=== PATIENT | male | born 1985 | race Caucasian/White ===

== ENCOUNTER 2017-03-28 16:18 | Observation (INO) | payer MEDICAID, SELFPAY ==
[2017-03-28 16:21] VITALS: BP 150/114; PULSE 84; RESP 16; TEMP 36.8; O2SAT 98; BMI 20.3
[2017-03-28] MEDS: cloNIDine HCl 0.1 MG Tablet PO ×2 (16:58→19:41)
--- NOTE | 2017-03-28 17:01 | ED.DCSUM_ITS ---
- ER Visit Summary Date of Service: 03/28/17 Chief Complaint: Heroin withdrawal History of Present Illness: The patient is a 32 M with no primary care physician. He reports that heroin is his drug of choice and he injects approximately 5 times per day. He states that he has been doing this for a few years. States that his use currently has been the majority of the year this time. Parents report that they had not seen him for a month. They drove down to [place] and found him a grocery store. He reports that his last use was at 230 this morning. He injected heroin and smoked crack. Reports that he has subjective fever and chills. He is abdominal pain and 6 out of 10 severity. He has had nausea and dry heaves. Is a 2-3 episodes of diarrhea today. He has diffuse myalgias and piloerection. He has generalized weakness. Parents gave him a dose of Benadryl and Imodium on the way back up from [place]. Physical Examination: Vitals: Stable. Afebrile. General: Well-nourished and well-developed. Head: Normocephalic atraumatic. Neck: Supple, no lymphadenopathy. No JVD. Nontender. Cardiovascular: Regular rate and rhythm. No murmurs. Respiratory: No respiratory distress. Clear to auscultation bilaterally. Abdominal: Soft, nontender, nondistended, normal bowel sounds. No guarding, rebound, or peritoneal signs. Back: Nontender. Extremities: Nontender, no edema. Skin: Injection sites to the right cephalic vein that do not appear infected. There is no erythema, warmth, or induration. He has a sclerosed left cephalic vein. There is no surrounding erythema, induration, or fluctuance to suggest infection. Neurologic: Alert and oriented ?3. Cranial nerves II through XII are intact. Normal strength and sensation. Psych: Normal affect. Test Results: [] Emergency Department Course and Treatment: Patient had an IV placed. He was given a dose of Phenergan IV, clonidine p.o., and had a nicotine patch placed. His CINA score is 15. CIWA score is 28. Treatment Plan: Patient was discussed with Dr. Cordero and yusuf patel. He will be admitted to the hospital for further evaluation and treatment. Disposition: Admitted in stable condition. Impression: 1. Opiate withdrawal. This note was generated with [employer] dictation software. It may contain incorrect words, spelling, and punctuation that were not noted in review of the chart prior to signing. ED Disposition - Plan for ED Patient: Chief Complaint: Subst Abuse Referrals: NOT,DEFINED [Primary Care Provider] -
[2017-03-28 17:09] VITALS: BP 121/74; PULSE 74; RESP 22; TEMP 36.8; O2SAT 99
--- NOTE | 2017-03-28 17:18 | PCM.HP.STD ---
Problem List (1) Opiate withdrawal Status: Acute (2) Heroin abuse Status: Chronic History of Present Illness Date of Admission: 03/28/17 Chief Complaint: heroin withdrawal The patient is a 32 year old M who was found by his parents because they went looking for him today because it is his birthday. They found him and he came the car voluntarily. Patient has been using heroin for the past 2 years. He is had quit at other times but most the time was involuntary his parents for some 2 or he was imprisoned her on parole. This time he came in voluntarily and did not jump out of the car, which according to his parents, his medication that he is desiring to quit. Patient uses IV heroin up to 5 times per day his last use is around 2:30 AM. He occasionally smokes methamphetamines and cocaine and marijuana. Does not drink alcohol. His CINA score is 15. She is asking for withdrawal treatment from opiates. [] Past Medical History Past Medical History (Chronic Problems): Chronic Problems Heroin abuse (Chronic) Allergies No Known Allergies Allergy (Verified 03/28/17 16:23) Home Medications: Ambulatory Orders Medication Instructions Recorded No Known/Unobtainable [No Known 03/28/17 Home Medications] Smoking Status: Heavy Smoker (>10/day) Tobacco Use: Cigarettes Alcohol: None Drugs: Cocaine, Marijuana, - - Methamphetamines - *Family History Maternal History Items: - Additional Family History: Patient is adopted Review of Systems Constitutional: Denies: Anorexia, Chills, Fever Eyes: Denies: Blurred vision, Double vision HEENT: Denies: Difficulty Hearing, Dysphasia Cardiovascular: Denies: Chest Pain, Palpitations Respiratory: Denies: Cough, Shortness of breath at rest, Sputum production Gastrointestinal: Reports: - - Abdominal cramps. Denies: Diarrhea Genitourinary: Denies: Dysuria Musculoskeletal: Denies: Joint Pain, Joint Tenderness Skin: Denies: Rash, Wounds Neurological: Denies: Numbness, Tingling, Focal weakness Psychiatric: Denies: Anxiety, Depression, Homicidal Ideations, Suicidal Ideations Hematologic/ Lymphatic: Denies: Easy Bruising, Easy Bleeding VTE Information - Inpt Only VTE Present on Admission: No VTE Mechan Device Prophylaxis: None VTE Pharm Prophylaxis ordered?: No Patient Problems: Active and Suspected Problems Opiate withdrawal (Acute) - Physical Exam General: Alert, Cooperative, No apparent distress HEENT: Atraumatic, Normocephalic Oral: Moist Mucosa, No Gingival or Mucosal Lesions/ Ulcerations Neck: No Nodes, Thyroid Normal Size and Texture Lungs: Clear to auscultation, Normal air movement, No rhonchi, No wheeze Cardiovascular: Regular rate, Regular Rhythm, Normal S1, Normal S2, No murmurs Abdomen: Bowel Sounds Present, Soft, Non Tender, Non-Distended, No Hepato-splenomegaly Extremities: No edema, No Calf Tenderness Skin: No rashes, - - Numerous tattoos on his arms and neck Musculoskeletal: No Tenderness to Palpation of Joints or Extremities, No Muscle Wasting Psych/Mental Status: Normal Affect, Appropriate Vital Signs Temp Pulse Resp BP Pulse Ox 36.8 C 84 16 150/114 98 03/28/17 16:21 03/28/17 16:21 03/28/17 16:21 03/28/17 16:21 03/28/17 16:21 Oxygen Delivery Method Room Air Weight: 60.781 kg Body Mass Index (BMI) 20.3 Assessment/Plan Active and Suspected Problems Opiate withdrawal (Acute) 1. Acute opiate withdrawal Patient voluntarily presents to the emergency room for treatment. Patient is coming from the [facility]. Patient last use is 2:30 AM. Patient has had a history of overdoses that have required Narcan. Patient will be enrolled in medical stabilization program with Subutex. Additionally, patient will be on other agents to help him with his other somatic complaints. Patient and his family were made aware that this is strictly a voluntary process and that it would be a total of 3 days here in the hospital then afterwards [facility] program will facilitate outpatient management. That will be determined why he is here in the hospital. Patient is told that we are here to help him but we certainly would not keep him here against his will.
--- NOTE | 2017-03-28 17:24 | HP.PCM_ITS ---
Problem List (1) Opiate withdrawal Status: Acute (2) Heroin abuse Status: Chronic History of Present Illness Date of Admission: 03/28/17 Chief Complaint: heroin withdrawal The patient is a 32 year old M who was found by his parents because they went looking for him today because it is his birthday. They found him and he came the car voluntarily. Patient has been using heroin for the past 2 years. He is had quit at other times but most the time was involuntary his parents for some 2 or he was imprisoned her on parole. This time he came in voluntarily and did not jump out of the car, which according to his parents, his medication that he is desiring to quit. Patient uses IV heroin up to 5 times per day his last use is around 2:30 AM. He occasionally smokes methamphetamines and cocaine and marijuana. Does not drink alcohol. His CINA score is 15. She is asking for withdrawal treatment from opiates. [] Past Medical History Past Medical History (Chronic Problems): Chronic Problems Heroin abuse (Chronic) Allergies No Known Allergies Allergy (Verified 03/28/17 16:23) Home Medications: Ambulatory Orders Medication Instructions Recorded No Known/Unobtainable [No Known 03/28/17 Home Medications] Smoking Status: Heavy Smoker (>10/day) Tobacco Use: Cigarettes Alcohol: None Drugs: Cocaine, Marijuana, - - Methamphetamines - *Family History Maternal History Items: - Additional Family History: Patient is adopted Review of Systems Constitutional: Denies: Anorexia, Chills, Fever Eyes: Denies: Blurred vision, Double vision HEENT: Denies: Difficulty Hearing, Dysphasia Cardiovascular: Denies: Chest Pain, Palpitations Respiratory: Denies: Cough, Shortness of breath at rest, Sputum production Gastrointestinal: Reports: - - Abdominal cramps. Denies: Diarrhea Genitourinary: Denies: Dysuria Musculoskeletal: Denies: Joint Pain, Joint Tenderness Skin: Denies: Rash, Wounds Neurological: Denies: Numbness, Tingling, Focal weakness Psychiatric: Denies: Anxiety, Depression, Homicidal Ideations, Suicidal Ideations Hematologic/ Lymphatic: Denies: Easy Bruising, Easy Bleeding VTE Information - Inpt Only VTE Present on Admission: No VTE Mechan Device Prophylaxis: None VTE Pharm Prophylaxis ordered?: No Patient Problems: Active and Suspected Problems Opiate withdrawal (Acute) - Physical Exam General: Alert, Cooperative, No apparent distress HEENT: Atraumatic, Normocephalic Oral: Moist Mucosa, No Gingival or Mucosal Lesions/ Ulcerations Neck: No Nodes, Thyroid Normal Size and Texture Lungs: Clear to auscultation, Normal air movement, No rhonchi, No wheeze Cardiovascular: Regular rate, Regular Rhythm, Normal S1, Normal S2, No murmurs Abdomen: Bowel Sounds Present, Soft, Non Tender, Non-Distended, No Hepato- splenomegaly Extremities: No edema, No Calf Tenderness Skin: No rashes, - - Numerous tattoos on his arms and neck Musculoskeletal: No Tenderness to Palpation of Joints or Extremities, No Muscle Wasting Psych/Mental Status: Normal Affect, Appropriate Vital Signs Temp Pulse Resp BP Pulse Ox 36.8 C 84 16 150/114 98 03/28/17 16:21 03/28/17 16:21 03/28/17 16:21 03/28/17 16:21 03/28/17 16:21 Oxygen Delivery Method Room Air Weight: 60.781 kg Body Mass Index (BMI) 20.3 Assessment/Plan Active and Suspected Problems Opiate withdrawal (Acute) 1. Acute opiate withdrawal * Patient voluntarily presents to the emergency room for treatment. Patient is coming from the [facility]. Patient last use is 2:30 AM. Patient has had a history of overdoses that have required Narcan. * Patient will be enrolled in medical stabilization program with Subutex. Additionally, patient will be on other agents to help him with his other somatic complaints. * Patient and his family were made aware that this is strictly a voluntary process and that it would be a total of 3 days here in the hospital then afterwards [facility] program will facilitate outpatient management. That will be determined why he is here in the hospital. Patient is told that we are here to help him but we certainly would not keep him here against his will.
[2017-03-28] MEDS: 0.9% Normal Saline 1,000 ML 1000 ML IV (17:31)
[2017-03-28 17:55] LABS: Amphetamine Urine VISTA NEGATIVE (<1000 ng/mL); Barbiturate Urine VISTA NEGATIVE (< 200 ng/mL); Benzodiazepine Urine VISTA NEGATIVE (< 200 ng/mL); Cocaine Urine VISTA POSITIVE (< 300 ng/mL); Ecstacy Urine VISTA NEGATIVE (< 500 ng/mL); Methadone Urine VISTA NEGATIVE (< 300 ng/mL); PCP Urine VISTA NEGATIVE (< 25 ng/mL); THC Urine VISTA NEGATIVE (< 50 ng/mL); Vista UDS pH Range 6
[2017-03-28 17:57] LABS: Absolute Lymphocyte Count 2.38 X10^3/ul (0.83-4.51); Absolute Neutrophil Count 3.9 X10^3/uL (2.0-7.7); Basophil# 0.07 X10^3/uL; Eosinophil# 0.11 X10^3/uL; Eosinophils% 1.6 % (0-5); Hematocrit 43.1 % (40-54); Hemoglobin 14.1 g/dl (13.0-16.5); Lymphocyte # 2.38 X10^3/ul (4.0); Lymphocyte % 33.8 % (19-41); Mean Corp Hgb Conc 32.7 g/gl (32-36); Mean Corpuscular Hgb 28.3 pg (27.0-32.0); Mean Corpuscular Volume 86.5 fL (80-94); Mean Platelet Vol. 9.1 fl (6.2-12.0); Monocyte# 0.56 X10^3/uL; Neutrophil # 3.87 X10^3/uL (2.7-7.7); Neutrophil % 54.9 % (47-70); Platelet Count 396 K/mm3 (150-450); RBC Distribution Width CV 15.1 % (11.6-14.6); RBC Distribution Width SD 48.1 fl (35.1-43.9); Red Blood Count 4.98 M/mm3 (4.6-6.2)
[2017-03-28 17:58] LABS: POSITIVE COUNT NO; POSITIVE DIFFERENTIAL NO; POSITIVE MORPHOLOGY NO
[2017-03-28 18:16] LABS: AST(SGOT) 416 U/L (15-37); Alanine Aminotransfer ALT/SGPT 632 U/L (12-78); Alkaline Phosphatase 158 U/L (45-117); Anion Gap 8 (5-15); BUN 8 mg/dL (7-18); BUN/Creat Ratio 10.5 RATIO (10-20); Bilirubin, Direct 0.19 mg/dL (0.00-0.30); Calcium,Total 8.1 mg/dL (8.5-10.1); Chloride 108 mmol/L (98-107); Creatinine, Serum 0.76 mg/dL (0.70-1.30); EST Glomerular Filtration Rate 127 mL/min (>60); Est Glom Filt Rate - Afr Amer 154 mL/min (>60); Estimated Creatinine Clearance 122.18 ml/min; Globulin 4.1 g/dL (2.2-4.2); Glucose 121 mg/dL (70-110); Potassium 3.8 mmol/L (3.5-5.1); Protein, Total 7.1 g/dL (6.4-8.2); Sodium Level 140 mmol/L (136-145)
[2017-03-28 18:41] VITALS: BMI 20.3; BMI 20.4
[2017-03-28 19:00] VITALS: BP 130/81; PULSE 69; RESP 18; TEMP 36.7
[2017-03-28] MEDS: Ibuprofen 400 MG Tablet 800 MG PO (19:40)
[2017-03-28] MEDS: Buprenorphine HCl 2 MG TAB.SUBL SL (19:41)
[2017-03-28 19:46] VITALS: BP 130/81; PULSE 69; RESP 24; TEMP 36.7
[2017-03-28] MEDS: traZODone 50 MG Tablet PO (22:55)
[2017-03-28 22:58] VITALS: BP 94/40; PULSE 53; RESP 18; TEMP 37
[2017-03-29 03:24] VITALS: BP 94/48; PULSE 61; RESP 16; TEMP 35.8
[2017-03-29] MEDS: Buprenorphine HCl 2 MG TAB.SUBL SL ×3 (03:28→18:56)
[2017-03-29 07:02] VITALS: BP 97/46; PULSE 67; RESP 16; TEMP 36.6
--- NOTE | 2017-03-29 07:35 | PCM.PN.HOSP ---
Patient Problems: Active and Suspected Problems Opiate withdrawal (Acute) Subjective: Patient is a 32-year-old gentleman with history of polysubstance abuse including IV heroin and crack cocaine admitted with acute opioid withdrawal Objective: GENERAL: cooperative HEENT: Clear conjunctiva, NECK; supple, normal thyroid, CHEST: Clear to auscultation bilaterally, HEART: Regular S1 S2, no audible murmurs ABDOMEN: soft, non-tender, n RECTAL: deferred EXTREMITIES: No edema, no clubbing, no cyanosis. OIL EXPERT: Awake, no lateralizing signs. SKIN: tattoos on upper extremities Vitals/I&O's: Vital Signs Temp Pulse Resp BP Pulse Ox 98 F 67 16 97/46 99 03/29/17 07:02 03/29/17 07:02 03/29/17 07:02 03/29/17 07:02 03/28/17 17:09 Weight: 60.781 kg Body Mass Index (BMI) 20.3 Intake and Output for Last 24 Hours 03/28/17 03/28/17 03/29/17 00:59 23:59 23:59 Intake Total 1100 Balance 1100 Laboratory Results 03/28/17 17:25: Urine Opiates Screen NEGATIVE, Urine Methadone Screen NEGATIVE, Ur Barbiturates Screen NEGATIVE, Ur Phencyclidine Scrn NEGATIVE, Ur Amphetamines Screen NEGATIVE, U Methamphetamin-MDMA NEGATIVE, U Benzodiazepines Scrn NEGATIVE, Urine Cocaine Screen POSITIVE H, U Cannabinoids Screen NEGATIVE, Ur Drug Screen Comment 03/28/17 17:41: WBC 7.0, RBC 4.98, Hgb 14.1, Hct 43.1, MCV 86.5, MCH 28.3, MCHC 32.7, RDW 15.1 H, RDW Differential 48.1 H, Plt Count 396, MPV 9.1, Immature Gran % (Auto) 0.700, Neut % (Auto) 54.9, Lymph % (Auto) 33.8, [place] % (Auto) 8.0, Eos % (Auto) 1.6, Baso % (Auto) 1.0, Absolute Neuts (auto) 3.9, Absolute Lymphs (auto) 2.38, Total Counted Not Reportable 03/28/17 17:41: Sodium 140, Potassium 3.8, Chloride 108 H, Carbon Dioxide 24.0, Anion Gap 8, BUN 8, Creatinine 0.76, Estim Creat Clear Calc 122.18, Est GFR (MDRD) Af Amer 154, Est GFR (MDRD) Non-Af 127, BUN/Creatinine Ratio 10.5, Glucose 121 H, Calcium 8.1 L, Total Bilirubin 0.50, Direct Bilirubin 0.19, AST 416 H, ALT 632 H, Alkaline Phosphatase 158 H, Total Protein 7.1, Albumin 3.0 L, Globulin 4.1 03/28/17 17:41: Ethyl Alcohol 4.0 03/28/17 17:41: HIV 1&2 Ag/Ab, 4th Gen Pending Current Medications Acetaminophen (Tylenol) 650 mg PO Q4H PRN PRN PRN Reason: Temp>99.1F Buprenorphine HCl (Buprenorphine Hcl) 4 mg SL Q8H ERASMO PRN Reason: Taper Stop: 03/31/17 23:44 Last Admin: 03/29/17 03:28 Dose: 4 mg Carbidopa/Levodopa (Sinemet) 1 tablet PO Q8H PRN PRN PRN Reason: RESTLESSNESS Clonidine (Catapres) 0.1 mg PO Q2H PRN PRN Reason: Hot/Cold Sweats or Anxiety Last Admin: 03/28/17 19:41 Dose: 0.1 mg Dicyclomine HCl (Bentyl) 20 mg PO Q6H PRN PRN PRN Reason: Abdomnial Discomfort Hydroxyzine Pamoate (Vistaril) 50 mg PO Q6H PRN PRN PRN Reason: Mild Anxiety (score 1/3) Last Admin: 03/28/17 19:41 Dose: 50 mg Ibuprofen (Motrin) 800 mg PO Q8H PRN PRN PRN Reason: Mild-Moderate Pain (1-5/10) Last Admin: 03/28/17 19:40 Dose: 800 mg Loperamide HCl (Imodium) 2 - 4 mg PO UD PRN PRN Reason: LOOSE STOOLS Nicotine (Nicoderm Cq (Pbkc)) 21 mg TRANSDERM. DAILY ERASMO Trazodone HCl (Desyrel) 50 mg PO QHS [facility] Last Admin: 03/28/17 22:55 Dose: 50 mg Assessment/Plan Active and Suspected Problems Opiate withdrawal (Acute) Patient is a 32-year-old gentleman with history of polysubstance abuse including IV heroin and crack cocaine admitted with acute opioid withdrawal 1. Acute opioid withdrawal admitted to regular nursing floor to be managed with Subutex for his medical stabilization patient was counseled on cessation 2. Tobacco dependence counseled on cessation, offered nicotine patch for tobacco cravings 3. DVT prophylaxis low risk did encourage early ambulation
[2017-03-29 10:59] VITALS: BP 111/58; PULSE 64; RESP 16; TEMP 36.5
[2017-03-29] MEDS: cloNIDine HCl 0.1 MG Tablet PO (11:08)
[2017-03-29 15:00] VITALS: BP 100/42; PULSE 62; RESP 16; TEMP 36.5
--- NOTE | 2017-03-29 15:20 | CHAPLAIN ---
Type of Pastoral Visit _x__ Initial Visit ___ Follow-up Visit ___ On-call Visit ___ General Patient Visit ___ Spiritual Assessment ___ Family Conference ___ Bereavement ___ Rapid Response ___ Code Blue ___ Other (describe below) Pastoral Care Referral From _x__ Patient _x__ Family ___ Nurse ___ Physician ___ Automobile Travel Club Counselor ___ Auto Body Repair Technician ___ Other (describe below) Sacrament/Intervention _x__ Active listening ___ Anointing ___ Sabianism ___ Bereavement ___ Communion ___ Concha exploration ___ ___ Life review ___ Prayer ___ Reconciliation ___ Sacrament of Sick ___ Supportive presence ___ Wedding ___ Other (describe below) Pastoral Comments patient said that he wished to speak to the physician credentialing specialist; pt said that God must have been looking out for him because of circumstances that brought him to hospital and how he was found; pt said that previously he was forced to go to rehab; now he says he wants help and is open to spiritual support and prayers; pt said that he would like physician credentialing specialist to return tomorrow and talk with him but now he is very tired from his meds
[2017-03-29 18:48] VITALS: BP 122/68; PULSE 68; RESP 16; TEMP 36.4
[2017-03-29] MEDS: Ibuprofen 400 MG Tablet 800 MG PO (19:02)
[2017-03-29] MEDS: traZODone 50 MG Tablet PO (21:05)
[2017-03-29] MEDS: Carbidopa/Levodopa 25/100 Tablet PO (21:06)
[2017-03-29 22:00] VITALS: BP 109/49; PULSE 56; RESP 16; TEMP 36.8
[2017-03-30] MEDS: Buprenorphine HCl 2 MG TAB.SUBL SL ×3 (04:11→23:12)
[2017-03-30 04:53] VITALS: BP 105/64; PULSE 67; RESP 16; TEMP 36.4
[2017-03-30 05:07] LABS: HEPATITIS B SURFACE AG Negative (Negative); Hepatitis A IgM Antibody Negative (Negative); Hepatitis B Core AB IgM Negative (Negative)
[2017-03-30 05:38] LABS: HIV 1/0/2 SCREEN 4TH GEN Non Reactive (Non Reactive)
--- NOTE | 2017-03-30 07:14 | PN_ITS ---
Patient Problems: Active and Suspected Problems Opiate withdrawal (Acute) Subjective: Patient seen complains of leg cramps. Patient requested for hep C screen the day prior ; order sent. Objective: GENERAL: cooperative HEENT: Clear conjunctiva, NECK; supple, normal thyroid, CHEST: Clear to auscultation bilaterally, HEART: Regular S1 S2, no audible murmurs ABDOMEN: soft, non-tender, n RECTAL: deferred EXTREMITIES: No edema, no clubbing, no cyanosis. ROENTGENOLOGY TEACHER: Awake, no lateralizing signs. SKIN: tattoos on upper extremities Vitals/I&O's: Vital Signs Temp Pulse Resp BP Pulse Ox 97.6 F 67 16 105/64 99 03/30/17 04:53 03/30/17 04:53 03/30/17 04:53 03/30/17 04:53 03/28/17 17:09 Weight: 60.781 kg Body Mass Index (BMI) 20.3 Intake and Output for Last 24 Hours 03/28/17 03/29/17 03/30/17 23:59 23:59 23:59 Intake Total 1100 800 Balance 1100 800 Laboratory Results 03/28/17 17:41: HIV 1&2 Ag/Ab, 4th Gen Non Reactive 03/28/17 17:41: Hepatitis A IgM Ab Negative, Hep Bs Antigen Negative, Hep B Core IgM Ab Negative, Hepatitis C Ab (EIA) >11.0 H, Hepatitis C Comment Pending Current Medications Acetaminophen (Tylenol) 650 mg PO Q4H PRN PRN PRN Reason: Temp>99.1F Buprenorphine HCl (Buprenorphine Hcl) 2 mg SL Q8H ERASMO PRN Reason: Taper Stop: 03/31/17 23:44 Last Admin: 03/30/17 04:11 Dose: 2 mg Carbidopa/Levodopa (Sinemet) 1 tablet PO Q8H PRN PRN PRN Reason: RESTLESSNESS Last Admin: 03/29/17 21:06 Dose: 1 tablet Clonidine (Catapres) 0.1 mg PO Q2H PRN PRN Reason: Hot/Cold Sweats or Anxiety Last Admin: 03/29/17 11:08 Dose: 0.1 mg Dicyclomine HCl (Bentyl) 20 mg PO Q6H PRN PRN PRN Reason: Abdomnial Discomfort Hydroxyzine Pamoate (Vistaril) 50 mg PO Q6H PRN PRN PRN Reason: Mild Anxiety (score 1/3) Last Admin: 03/29/17 21:05 Dose: 50 mg Ibuprofen (Motrin) 800 mg PO Q8H PRN PRN PRN Reason: Mild-Moderate Pain (1-5/10) Last Admin: 03/29/17 19:02 Dose: 800 mg Loperamide HCl (Imodium) 2 - 4 mg PO UD PRN PRN Reason: LOOSE STOOLS Nicotine (Nicoderm Cq (Pbkc)) 21 mg TRANSDERM. DAILY [facility] Last Admin: 03/29/17 10:54 Dose: 21 mg Nutritional Formula (Lactose Free) (Ensure Enlive) 120 ml PO 4X/DAY [facility] Last Admin: 03/29/17 21:06 Dose: 120 ml Trazodone HCl (Desyrel) 50 mg PO QHS [facility] Last Admin: 03/29/17 21:05 Dose: 50 mg Assessment/Plan Active and Suspected Problems Opiate withdrawal (Acute) Patient is a 32-year-old gentleman with history of polysubstance abuse including IV heroin and crack cocaine admitted with acute opioid withdrawal 1. Acute opioid withdrawal admitted to regular nursing floor to be managed with Subutex for his medical stabilization patient was counseled on cessation 2. Tobacco dependence counseled on cessation, offered nicotine patch for tobacco cravings 3. DVT prophylaxis low risk did encourage early ambulation
[2017-03-30 11:17] VITALS: BP 120/72; PULSE 65; RESP 16; TEMP 36.6
[2017-03-30] MEDS: Ibuprofen 400 MG Tablet 800 MG PO ×2 (11:33→18:59)
[2017-03-30] MEDS: cloNIDine HCl 0.1 MG Tablet PO ×2 (11:33→17:02)
[2017-03-30] MEDS: Carbidopa/Levodopa 25/100 Tablet PO (11:34)
--- NOTE | 2017-03-30 15:19 | CHAPLAIN ---
Type of Pastoral Visit ___ Initial Visit _x__ Follow-up Visit ___ On-call Visit ___ General Patient Visit ___ Spiritual Assessment ___ Family Conference ___ Bereavement ___ Rapid Response ___ Code Blue ___ Other (describe below) Pastoral Care Referral From _x__ Patient ___ Family ___ Nurse ___ Physician ___ Answerer ___ Cold Patcher ___ Other (describe below) Sacrament/Intervention _x__ Active listening ___ Anointing ___ Mosque ___ Bereavement ___ Communion _x__ Concha exploration ___ ___ Life review _x__ Prayer ___ Reconciliation ___ Sacrament of Sick ___ Supportive presence ___ Wedding ___ Other (describe below) Pastoral Comments return visit as requested by patient; pt said he is going to a [place] based rehab that he chose and wants spiritual help; pt told me that he was looking at the Bible and remembering; pt says that he is seeing how God has given him help this time; pt made comments about fearing God if pt makes promises to God that he will not keep; showed he the story of Prodigal Son from the Bible and how that relates; pt welcomed a prayer and handouts of inspirational materials;
[2017-03-30 16:57] VITALS: BP 118/79; PULSE 57; RESP 16; TEMP 36.4
[2017-03-30 22:00] VITALS: BP 128/79; PULSE 63; RESP 16; TEMP 36.5
[2017-03-30] MEDS: traZODone 50 MG Tablet PO (23:12)
[2017-03-31 02:00] VITALS: RESP 16
[2017-03-31 06:00] VITALS: RESP 16
--- NOTE | 2017-03-31 07:40 | PN_ITS ---
Patient Problems: Active and Suspected Problems Opiate withdrawal (Acute) Subjective: Seen admit to feeling better. Plan is for patient to be discharged to an inpatient rehab facility on 04/01/2017. Objective: GENERAL: cooperative HEENT: Clear conjunctiva, NECK; supple, normal thyroid, CHEST: Clear to auscultation bilaterally, HEART: Regular S1 S2, no audible murmurs ABDOMEN: soft, non-tender, n RECTAL: deferred EXTREMITIES: No edema, no clubbing, no cyanosis. SEMICONDUCTOR WAFERS SAW OPERATOR: Awake, no lateralizing signs. SKIN: tattoos on upper extremities Vitals/I&O's: Vital Signs Temp Pulse Resp BP Pulse Ox 97.7 F 63 16 128/79 99 03/30/17 22:00 03/30/17 22:00 03/31/17 06:00 03/30/17 22:00 03/28/17 17:09 Weight: 60.781 kg Body Mass Index (BMI) 20.3 Intake and Output for Last 24 Hours 03/29/17 03/30/17 03/31/17 23:59 23:59 23:59 Intake Total 1100 1240 222 Balance 1100 1240 222 Current Medications Acetaminophen (Tylenol) 650 mg PO Q4H PRN PRN PRN Reason: Temp>99.1F Buprenorphine HCl (Buprenorphine Hcl) 2 mg SL Q12H ERASMO PRN Reason: Taper Stop: 03/31/17 23:44 Last Admin: 03/30/17 23:12 Dose: 2 mg Carbidopa/Levodopa (Sinemet) 1 tablet PO Q8H PRN PRN PRN Reason: RESTLESSNESS Last Admin: 03/30/17 11:34 Dose: 1 tablet Clonidine (Catapres) 0.1 mg PO Q2H PRN PRN Reason: Hot/Cold Sweats or Anxiety Last Admin: 03/30/17 17:02 Dose: 0.1 mg Dicyclomine HCl (Bentyl) 20 mg PO Q6H PRN PRN PRN Reason: Abdomnial Discomfort Hydroxyzine Pamoate (Vistaril) 50 mg PO Q6H PRN PRN PRN Reason: Mild Anxiety (score 1/3) Last Admin: 03/30/17 17:02 Dose: 50 mg Ibuprofen (Motrin) 800 mg PO Q8H PRN PRN PRN Reason: Mild-Moderate Pain (1-5/10) Last Admin: 03/30/17 18:59 Dose: 800 mg Loperamide HCl (Imodium) 2 - 4 mg PO UD PRN PRN Reason: LOOSE STOOLS Nicotine (Nicoderm Cq (Pbkc)) 21 mg TRANSDERM. DAILY [facility] Last Admin: 03/30/17 11:33 Dose: 21 mg Nutritional Formula (Lactose Free) (Ensure Enlive) 120 ml PO 4X/DAY [facility] Last Admin: 03/30/17 23:13 Dose: Not Given Trazodone HCl (Desyrel) 50 mg PO QHS [facility] Last Admin: 03/30/17 23:12 Dose: 50 mg Assessment/Plan Active and Suspected Problems Opiate withdrawal (Acute) Patient is a 32-year-old gentleman with history of polysubstance abuse including IV heroin and crack cocaine admitted with acute opioid withdrawal 1. Acute opioid withdrawal admitted to regular nursing floor to be managed with Subutex for his medical stabilization patient was counseled on cessation 2. Tobacco dependence counseled on cessation, offered nicotine patch for tobacco cravings 3. DVT prophylaxis low risk did encourage early ambulation
[2017-03-31 07:56] LABS: Hep C Antibodies >11.0 s/co ratio (0.0-0.9)
[2017-03-31 11:00] VITALS: BP 124/73; PULSE 72; RESP 14; TEMP 36.8
[2017-03-31] MEDS: Buprenorphine HCl 2 MG TAB.SUBL SL (11:39)
--- NOTE | 2017-03-31 16:31 | CHAPLAIN ---
Type of Pastoral Visit ___ Initial Visit _x__ Follow-up Visit ___ On-call Visit ___ General Patient Visit ___ Spiritual Assessment ___ Family Conference ___ Bereavement ___ Rapid Response ___ Code Blue ___ Other (describe below) Pastoral Care Referral From _x__ Patient ___ Family ___ Nurse ___ Physician ___ Coffee Roaster Helper ___ Highway Maintenance Crew Worker ___ Other (describe below) Sacrament/Intervention _x__ Active listening ___ Anointing ___ Buddhism ___ Bereavement ___ Communion _x__ Concha exploration ___ _x__ Life review _x__ Prayer ___ Reconciliation ___ Sacrament of Sick _x__ Supportive presence ___ Wedding ___ Other (describe below) Pastoral Comments patient asked staff for this geropsychologist to visit again today; pt has some apprehension about going to rehab but expresses determination to stick with it; pt has had much support from family; pt is asking for spiritual help, conversation, and prayers
[2017-03-31] MEDS: Ibuprofen 400 MG Tablet 800 MG PO (16:44)
[2017-03-31 16:59] VITALS: BP 122/76; PULSE 71; RESP 14; TEMP 37.1
[2017-03-31 21:04] VITALS: BP 157/131; PULSE 54; RESP 16; TEMP 37.2
[2017-03-31] MEDS: traZODone 50 MG Tablet PO (21:21)
[2017-03-31] MEDS: cloNIDine HCl 0.1 MG Tablet PO (21:21)
[2017-04-01 02:00] VITALS: RESP 16
[2017-04-01 06:00] VITALS: RESP 16
[2017-04-01] MEDS: cloNIDine HCl 0.1 MG Tablet PO (08:07)
[2017-04-01] MEDS: Ibuprofen 400 MG Tablet 800 MG PO (08:07)
[2017-04-01 08:08] VITALS: BP 121/84; PULSE 71; RESP 16; TEMP 36.6; O2SAT 100
--- NOTE | 2017-04-01 08:13 | PCM.DC ---
- Discharge Diagnoses Current Active Problems: Current Active and Chronic Problems Opiate withdrawal (Acute) Heroin abuse (Chronic) You will use the following diet at home:: No restrictions Your food should be the consistency of: Regular Allergies/Adverse Reactions: Allergies No Known Allergies Allergy (Verified 03/28/17 16:23) Medications to take at Discharge No Known/Unobtainable [No Known Home Medications] 03/28/17 Primary Care Physician: NOT,DEFINED [NON-STAFF] - Proposed Discharge Date: 04/01/17
--- NOTE | 2017-04-01 08:14 | PCM.DC.SUM ---
Discharge Date and Diagnosis - Problem List Patient Problems: Active and Suspected Problems Opiate withdrawal (Acute) Date of Admission: 03/28/17 Date of Discharge: 04/01/17 - Primary Discharge Diagnosis Active and Suspected Problems Opiate withdrawal (Acute) - Secondary Discharge Diagnosis Chronic Problems Heroin abuse (Chronic) Hospital Course and Treatment Summary of Care Provided: Patient is a 32-year-old gentleman with history of polysubstance abuse including IV heroin and crack cocaine admitted with acute opioid withdrawal 1. Acute opioid withdrawal admitted to regular nursing floor to be managed with Subutex for his medical stabilization patient was counseled on cessation 2. Tobacco dependence counseled on cessation, offered nicotine patch for tobacco cravings 3. DVT prophylaxis low risk did encourage early ambulation Discharge Diet: No Restrictions Discharge Activity: Return to Normal Activity Home Medications: Medications to take at Discharge No Known/Unobtainable [No Known Home Medications] 03/28/17 Primary Care Physician: NOT,DEFINED [NON-STAFF] - Disposition: Home Minutes spent on discharge:: 35 Patient Condition:: Stable Meaningful Use Info Meaningful Use Diagnoses (Choose all that apply): None applicable
== END 2017-04-01 10:19 | disposition home or self-care (01) | DRG 773 ==
LOC: ED 08-02 07:28 → MS2 08-02 07:28
PROVIDERS: Emergency Provider Emergency Medicine; Visit Provider Internal Medicine
DX: F11.23 Opioid dependence with withdrawal (principal); F17.210 Nicotine dependence, cigarettes, uncomplicated; F14.10 Cocaine abuse, uncomplicated
CPT/HCPCS: 80048; 80074; 80076; 80307; 80320; 85025; 86703; 86803; 97802; 99218; 99285; G0378; G0480

== ENCOUNTER 2018-08-20 15:20 | Inpatient (IN) | payer MEDICAID, SELFPAY ==
[2018-08-20 15:21] VITALS: BP 117/68; PULSE 79; RESP 18; TEMP 36.4; O2SAT 99; BMI 22.3
--- NOTE | 2018-08-20 17:47 | ED.VISSUMM ---
- ER Visit Summary Date of Service: 08/20/18 Chief Complaint: Heroin withdrawal, request for detox History of Present Illness: The patient is a 33 M who presents for heroin withdrawal and requesting detox. Patient last used heroin 12 hours ago. He did use meth in the meantime to try and help with symptoms. He is having insomnia for 2 days, tremors, nausea and vomiting, feeling fidgety, and generally achy. Patient denies any other medical history he did have prior detox 1 year ago. He uses heroin and meth. He smokes tobacco. Denies any recent alcohol use. Physical Examination: Vital signs: afebrile, hemodynamically stable, no hypoxia on room air General: well nourished, well developed, in no distress, fidgeting and moving frequently, anxious Skin: Warm warm, dry, no rash, no pallor HEENT: normocephalic and atraumatic; PERRL, EOMI, moist mucous membranes Cardiovascular: regular rate and rhythm without murmurs, no peripheral edema, 2+ pulses all distal extremities Respiratory: No increased work of breathing, lungs are clear to auscultation bilaterally, no rales, rhonchi or wheezing Abdominal: Abdomen is soft, mildly tender with hyperactive bowel sounds, no guarding or rebound, no masses MSK: Moves all extremities, no deformities, normal strength Neuro: Awake and alert, oriented ?4. No facial droop, sensation and motor function intact and symmetric Test Results: Abnormal Lab Results 08/20/18 08/20/18 08/20/18 17:50 17:50 17:50 WBC 11.6 H RBC 5.03 Hgb 14.9 Hct 42.0 MCV 83.5 MCH 29.6 MCHC 35.5 RDW 13.3 RDW Differential 40.0 Plt Count 353 MPV 9.3 Immature Gran % (Auto) 0.300 Neut % (Auto) 62.6 Lymph % (Auto) 27.4 [place] % (Auto) 7.8 Eos % (Auto) 1.6 Baso % (Auto) 0.3 Absolute Neuts (auto) 7.3 Absolute Lymphs (auto) 3.18 Total Counted Not Reportable Sodium 134 L Potassium 3.5 Chloride 99 Carbon Dioxide 28.0 Anion Gap 7 BUN 12 Creatinine 0.69 L Estim Creat Clear Calc 150.29 Est GFR (MDRD) Af Amer 172 Est GFR (MDRD) Non-Af 143 BUN/Creatinine Ratio 17.5 Glucose 88 Calcium 9.0 Total Bilirubin 0.80 AST 24 ALT 48 Alkaline Phosphatase 106 Total Protein 7.9 Albumin 4.5 Globulin 3.4 Albumin/Globulin Ratio 1.3 Urine Opiates Screen Urine Methadone Screen Ur Barbiturates Screen Ur Phencyclidine Scrn Ur Amphetamines Screen U Methamphetamin-MDMA U Benzodiazepines Scrn Urine Cocaine Screen U Cannabinoids Screen Ur Drug Screen Comment Ethyl Alcohol 6.0 08/20/18 17:50 WBC RBC Hgb Hct MCV MCH MCHC RDW RDW Differential Plt Count MPV Immature Gran % (Auto) Neut % (Auto) Lymph % (Auto) [place] % (Auto) Eos % (Auto) Baso % (Auto) Absolute Neuts (auto) Absolute Lymphs (auto) Total Counted Sodium Potassium Chloride Carbon Dioxide Anion Gap BUN Creatinine Estim Creat Clear Calc Est GFR (MDRD) Af Amer Est GFR (MDRD) Non-Af BUN/Creatinine Ratio Glucose Calcium Total Bilirubin AST ALT Alkaline Phosphatase Total Protein Albumin Globulin Albumin/Globulin Ratio Urine Opiates Screen POSITIVE H Urine Methadone Screen NEGATIVE Ur Barbiturates Screen POSITIVE H Ur Phencyclidine Scrn NEGATIVE Ur Amphetamines Screen POSITIVE H U Methamphetamin-MDMA NEGATIVE U Benzodiazepines Scrn NEGATIVE Urine Cocaine Screen NEGATIVE U Cannabinoids Screen NEGATIVE Ur Drug Screen Comment Ethyl Alcohol Medications Given Lorazepam (Ativan) 1 mg IV X1 ONE Stop: 08/20/18 17:36 Last Admin: 08/20/18 18:06 Dose: 1 mg Emergency Department Course and Treatment: patient's CINA score is 15. Because of significant discomfort and agitation, patient was given IV Ativan and had great improvement in his symptoms. Medical screening exam was performed. Patient was discussed with the hospitalist and admitted for further management of his withdrawal symptoms and evaluation by [facility] for detox. Treatment Plan: [] Disposition: [] Impression: Opiate withdrawal heroin detox This note was generated with [employer] dictation software. It may contain incorrect words, spelling, and punctuation that were not noted in review of the chart prior to signing ED Disposition - Plan for ED Patient: Disposition: Acute Care Hospital [facility]
[2018-08-20 17:48] VITALS: BP 118/72; PULSE 79; RESP 16; O2SAT 98
[2018-08-20] MEDS: LORazepam 2 MG/ML Syringe 1 MG IV (18:06)
[2018-08-20 18:15] LABS: Absolute Lymphocyte Count 3.18 X10^3/ul (0.83-4.51); Absolute Neutrophil Count 7.3 X10^3/uL (2.0-7.7); Basophil# 0.04 X10^3/uL; Basophil% 0.3 % (0-1); Eosinophil# 0.19 X10^3/uL; Eosinophils% 1.6 % (0-5); Hemoglobin 14.9 g/dl (13.0-16.5); Lymphocyte # 3.18 X10^3/ul (4.0); Lymphocyte % 27.4 % (19-41); Mean Corp Hgb Conc 35.5 g/gl (32-36); Mean Corpuscular Hgb 29.6 pg (27.0-32.0); Mean Corpuscular Volume 83.5 fL (80-94); Mean Platelet Vol. 9.3 fl (6.2-12.0); Monocyte# 0.91 X10^3/uL; Monocyte% 7.8 % (0-10); Neutrophil # 7.26 X10^3/uL (2.7-7.7); Neutrophil % 62.6 % (47-70); POSITIVE COUNT NO; POSITIVE DIFFERENTIAL NO; POSITIVE MORPHOLOGY NO; Platelet Count 353 K/mm3 (150-450); RBC Distribution Width CV 13.3 % (11.6-14.6); Red Blood Count 5.03 M/mm3 (4.6-6.2); White Blood Count 11.6 K/mm3 (4.4-11.0)
[2018-08-20 18:28] LABS: Amphetamine Urine VISTA POSITIVE (<1000 ng/mL); Barbiturate Urine VISTA POSITIVE (< 200 ng/mL); Benzodiazepine Urine VISTA NEGATIVE (< 200 ng/mL); Cocaine Urine VISTA NEGATIVE (< 300 ng/mL); Ecstacy Urine VISTA NEGATIVE (< 500 ng/mL); Methadone Urine VISTA NEGATIVE (< 300 ng/mL); PCP Urine VISTA NEGATIVE (< 25 ng/mL); THC Urine VISTA NEGATIVE (< 50 ng/mL); Vista UDS pH Range 6
[2018-08-20 18:31] LABS: Albumin, Serum 4.5 g/dL (3.2-5.0); BUN 12 mg/dL (7-18); BUN/Creat Ratio 17.5 RATIO (10-20); Creatinine, Serum 0.69 mg/dL (0.70-1.30); EST Glomerular Filtration Rate 143 mL/min (>60); Est Glom Filt Rate - Afr Amer 172 mL/min (>60); Estimated Creatinine Clearance 150.29 ml/min; Glucose 88 mg/dL (74-106); Protein, Total 7.9 g/dL (6.4-8.2)
[2018-08-20 18:32] LABS: ALB/GLOB Ratio 1.3 RATIO (0.9-2.4); AST(SGOT) 24 U/L (15-37); Alanine Aminotransfer ALT/SGPT 48 U/L (16-61); Alkaline Phosphatase 106 U/L (45-117); Anion Gap 7 (5-15); Chloride 99 mmol/L (98-107); Globulin 3.4 g/dL (2.2-4.2); Potassium 3.5 mmol/L (3.5-5.1); Sodium Level 134 mmol/L (136-145)
[2018-08-20 19:13] VITALS: BP 111/78; PULSE 89; RESP 14; O2SAT 97
[2018-08-20 20:32] VITALS: BMI 21.9
[2018-08-20 20:36] VITALS: BP 101/66; PULSE 66; RESP 18; TEMP 36.6
[2018-08-20 20:42] VITALS: BMI 22.0
[2018-08-20] MEDS: Methocarbamol 750 MG Tablet PO (20:58)
[2018-08-20] MEDS: Buprenorphine HCl 2 MG TAB.SUBL SL (20:59)
--- NOTE | 2018-08-20 21:17 | PCM.HP.STD ---
Problem List (1) Opiate withdrawal Status: Acute History of Present Illness Date of Admission: 08/20/18 Chief Complaint: Opiate withdrawal The patient is a 33 year old M was seen in the emergency room the hospital with a chief complaint of opiate withdrawal. Patient last used approximately 14 hours ago, he injects heroin. Patient occasionally uses methamphetamines but he has not used any in the last 24 hours. Patient complains of feeling shaky, sweaty, having abdominal cramping, and muscle cramping. Labs were obtained by the emergency room physician, white blood cell count was slightly elevated at 11.6, chemistry profile was abnormal for a sodium of 134, patient's tox screen was positive for opiates barbiturates and amphetamines. Patient will be admitted to [place] [address] using the medical stabilization order sets, [facility] will see the patient on Wednesday-he requests that he see them for opiate detox. Past Medical History Past Medical History (Chronic Problems): Chronic Problems Heroin abuse (Chronic) Allergies No Known Allergies Allergy (Verified 08/20/18 15:23) Home Medications: Ambulatory Orders Medication Instructions Recorded No Known/Unobtainable [No Known 03/28/17 Home Medications] Surgical History: no surgical history Psychiatric History: No pertinent psych hx Lives: Alone Smoking Status: Current every day smoker Tobacco Use: Cigarettes Alcohol: None Drugs: Heroin, - - Methamphetamines - *Family History Maternal History Items: No pertinent history Paternal History Items: No pertinent history Review of Systems Constitutional: Reports: Night Sweats, Malaise. Denies: Anorexia, Chills, Fever, Weakness, Weight Change, Fatigue Eyes: Denies: Cataracts, Conjunctivae Inflammation, Double vision, Drainage HEENT: Denies: Difficulty Swallowing, Dysphasia, Ear Pain, Eye Pain, Nasal bleeding, Nasal Congestion, Post Nasal Drip Cardiovascular: Denies: Chest Pain, Claudication, Chest Pressure, Chest Tightness, Edema, Orthopnea, Palpitations, Paroxysmal Noc. Dyspnea Respiratory: Denies: Cough, Hemoptysis, Pleuritic Pain, Shortness of Breath, Shortness of breath at rest, Shortness of breath upon exertion Gastrointestinal: Denies: Abdominal Pain, Constipation, Diarrhea, Hematemesis, Hematochezia, Nausea, Melena, Vomiting Genitourinary: Denies: Dysuria, Frequency, Hematuria, Hesitancy, Incontinence, Nocturia, Urgency Musculoskeletal: Denies: Back Pain, Foot Pain, Hand Pain, Joint Pain, Joint stiffness, Joint swelling, Joint Tenderness, Leg Pain Skin: Denies: Dryness, Pruritis, Rash Neurological: Denies: Blurred vision, Double vision, Slurred speech, Difficulty swallowing, Focal weakness, Headaches, Incoordination, Numbness, Tingling Psychiatric: Reports: Anxiety. Denies: Depression, Homicidal Ideations, Suicidal Ideations Endocrine: Denies: Change in Body Habitus, Heat/ Cold Intolerance, Polydipsia, Polyuria, Hx of Irradiation Hematologic/ Lymphatic: Denies: Adenopathy, Anemia, Easy Bruising, Easy Bleeding, Petechiae, Purpura VTE Information - Inpt Only VTE Present on Admission: No VTE Mechan Device Prophylaxis: None VTE Pharm Prophylaxis ordered?: No - Physical Exam General: Alert, Oriented x3, Cooperative, Well developed, Well nourished HEENT: Atraumatic, PERRLA, EOMI, Normocephalic Oral: Moist Mucosa Neck: Supple, No JVD, Negative Carotid Bruits, No Nuchal Rigidity, Trachea Midline, Thyroid Normal Size and Texture Lungs: Clear to auscultation, Normal air movement, No rhonchi, No wheeze, No rales Cardiovascular: Regular rate, Regular Rhythm, Normal S1, Normal S2, No murmurs, No Ectopic Activity Abdomen: Bowel Sounds Present, Soft, Non Tender, Non-Distended, No hernias noted Extremities: No clubbing, No cyanosis, No edema, Capillary Refill Less than 3 Seconds Skin: No rashes, No breakdown Neurological: Cranial nerves II-XII grossly intact, Neuro grossly intact, Muscle tone normal, Sensory exam intact to light touch and pain, Coordination normal Psych/Mental Status: Normal Affect, Appropriate, Alert and oriented to time, place, person, mood and affect Vital Signs Temp Pulse Resp BP Pulse Ox 97.9 F 66 18 101/66 97 08/20/18 20:36 08/20/18 20:36 08/20/18 20:36 08/20/18 20:36 08/20/18 19:13 Oxygen Delivery Method Room Air Weight: 67.3 kg Body Mass Index (BMI) 21.9 Laboratory Tests Past 24 Hrs 08/20/18 08/20/18 08/20/18 17:50 17:50 17:50 WBC 11.6 H RBC 5.03 Hgb 14.9 Hct 42.0 MCV 83.5 MCH 29.6 MCHC 35.5 RDW 13.3 RDW Differential 40.0 Plt Count 353 MPV 9.3 Immature Gran % (Auto) 0.300 Neut % (Auto) 62.6 Lymph % (Auto) 27.4 [place] % (Auto) 7.8 Eos % (Auto) 1.6 Baso % (Auto) 0.3 Absolute Neuts (auto) 7.3 Absolute Lymphs (auto) 3.18 Total Counted Not Reportable Sodium 134 L Potassium 3.5 Chloride 99 Carbon Dioxide 28.0 Anion Gap 7 BUN 12 Creatinine 0.69 L Estim Creat Clear Calc 150.29 Est GFR (MDRD) Af Amer 172 Est GFR (MDRD) Non-Af 143 BUN/Creatinine Ratio 17.5 Glucose 88 Calcium 9.0 Total Bilirubin 0.80 AST 24 ALT 48 Alkaline Phosphatase 106 Total Protein 7.9 Albumin 4.5 Globulin 3.4 Albumin/Globulin Ratio 1.3 Urine Opiates Screen Urine Methadone Screen Ur Barbiturates Screen Ur Phencyclidine Scrn Ur Amphetamines Screen U Methamphetamin-MDMA U Benzodiazepines Scrn Urine Cocaine Screen U Cannabinoids Screen Ur Drug Screen Comment Ethyl Alcohol 6.0 08/20/18 17:50 WBC RBC Hgb Hct MCV MCH MCHC RDW RDW Differential Plt Count MPV Immature Gran % (Auto) Neut % (Auto) Lymph % (Auto) [place] % (Auto) Eos % (Auto) Baso % (Auto) Absolute Neuts (auto) Absolute Lymphs (auto) Total Counted Sodium Potassium Chloride Carbon Dioxide Anion Gap BUN Creatinine Estim Creat Clear Calc Est GFR (MDRD) Af Amer Est GFR (MDRD) Non-Af BUN/Creatinine Ratio Glucose Calcium Total Bilirubin AST ALT Alkaline Phosphatase Total Protein Albumin Globulin Albumin/Globulin Ratio Urine Opiates Screen POSITIVE H Urine Methadone Screen NEGATIVE Ur Barbiturates Screen POSITIVE H Ur Phencyclidine Scrn NEGATIVE Ur Amphetamines Screen POSITIVE H U Methamphetamin-MDMA NEGATIVE U Benzodiazepines Scrn NEGATIVE Urine Cocaine Screen NEGATIVE U Cannabinoids Screen NEGATIVE Ur Drug Screen Comment Ethyl Alcohol Assessment/Plan All Active Problems Opiate withdrawal (Acute) #1 acute opiate withdrawal-patient will be admitted to [place] [address], orders were entered using the medical stabilization protocol order set, [facility] will need to see the patient on Wednesday #2 heroin addiction #3 polysubstance abuse Code Visit Inpatient E&M: 08684 Init Hosp L3
--- NOTE | 2018-08-20 21:55 | NURSING ---
Charge Nurse Estrada left voicemail with [facility] in regards to consult.
[2018-08-21 00:37] VITALS: BP 103/59; PULSE 76; RESP 18; TEMP 36.8
[2018-08-21] MEDS: Ibuprofen 600 MG Tablet PO ×2 (00:45→13:54)
[2018-08-21] MEDS: cloNIDine HCl 0.1 MG Tablet PO (00:45)
[2018-08-21 04:57] VITALS: BP 96/57; PULSE 59; RESP 16; TEMP 36.6
[2018-08-21] MEDS: Buprenorphine HCl 2 MG TAB.SUBL SL ×3 (04:58→20:30)
--- NOTE | 2018-08-21 07:47 | PN_ITS ---
Subjective: Overall, patient feels better in regards to tremor, sweating and diaphoresis. Anxiety is controlled. Vitals/I&O's: Vital Signs Temp Pulse Resp BP Pulse Ox 97.8 F 59 L 16 96/57 L 97 08/21/18 04:57 08/21/18 04:57 08/21/18 04:57 08/21/18 04:57 08/20/18 19:13 Oxygen Delivery Method Room Air Weight: 148 lb 5.938 oz Body Mass Index (BMI) 21.9 Intake and Output for Last 24 Hours 08/19/18 08/20/18 08/21/18 23:59 23:59 23:59 Intake Total 781 / 781 Balance 781 / 781 General: Alert, Oriented x3, Cooperative HEENT: Atraumatic, PERRLA, EOMI, Normocephalic Neck: Supple, No JVD, Negative Carotid Bruits Lungs: Clear to auscultation, Normal air movement Cardiovascular: Regular rate, Regular Rhythm, Normal S1, Normal S2, No murmurs Abdomen: Bowel Sounds Present, Soft, Non Tender Extremities: No edema, Capillary Refill Less than 3 Seconds Skin: No rashes, No breakdown, - - Chronic thickened superficial veins in both arms suggestive of chronic thrombophlebitis Musculoskeletal: No Tenderness to Palpation of Joints or Extremities Lymphatic: No Cervical, Supraclavicular, or Inguinal Adenopathy Neurological: Cranial nerves II-XII grossly intact, Deep Tendon Reflexes 2+/4 and Symmetrical, Neuro grossly intact, Motor Exam 5/5 strength throughout Psych/Mental Status: Normal Affect, Appropriate Laboratory Results 08/20/18 17:50: WBC 11.6 H, RBC 5.03, Hgb 14.9, Hct 42.0, MCV 83.5, MCH 29.6, MCHC 35.5, RDW 13.3, RDW Differential 40.0, Plt Count 353, MPV 9.3, Immature Gran % (Auto) 0.300, Neut % (Auto) 62.6, Lymph % (Auto) 27.4, [place] % (Auto) 7.8, Eos % (Auto) 1.6, Baso % (Auto) 0.3, Absolute Neuts (auto) 7.3, Absolute Lymphs (auto) 3.18, Total Counted Not Reportable 08/20/18 17:50: Sodium 134 L, Potassium 3.5, Chloride 99, Carbon Dioxide 28.0, Anion Gap 7, BUN 12, Creatinine 0.69 L, Estim Creat Clear Calc 150.29, Est GFR (MDRD) Af Amer 172, Est GFR (MDRD) Non-Af 143, BUN/Creatinine Ratio 17.5, Glucose 88, Calcium 9.0, Total Bilirubin 0.80, AST 24, ALT 48, Alkaline Phosphatase 106, Total Protein 7.9, Albumin 4.5, Globulin 3.4, Albumin/Globulin Ratio 1.3 08/20/18 17:50: Ethyl Alcohol 6.0 08/20/18 17:50: Urine Opiates Screen POSITIVE H, Urine Methadone Screen NEGATIVE, Ur Barbiturates Screen POSITIVE H, Ur Phencyclidine Scrn NEGATIVE, Ur Amphetamines Screen POSITIVE H, U Methamphetamin-MDMA NEGATIVE, U Benzodiazepines Scrn NEGATIVE, Urine Cocaine Screen NEGATIVE, U Cannabinoids Screen NEGATIVE, Ur Drug Screen Comment Current Medications Acetaminophen (Tylenol) 500 mg PO Q4H PRN PRN PRN Reason: Temp > 100.4 F Buprenorphine HCl (Buprenorphine Hcl) 4 mg SL Q8H ERASMO; Taper Stop: 08/24/18 00:30 Last Admin: 08/21/18 04:58 Dose: 4 mg Chlordiazepoxide (Librium) 25 mg PO Q6H PRN PRN PRN Reason: Moderate-Severe Anxiety Clonidine (Catapres) 0.1 mg PO Q2H PRN PRN PRN Reason: Hot/Cold Sweats or Anxiety Last Admin: 08/21/18 00:45 Dose: 0.1 mg Ibuprofen (Motrin) 600 mg PO Q8H PRN PRN PRN Reason: Mild-Moderate Pain (1-5/10) Last Admin: 08/21/18 00:45 Dose: 600 mg Methocarbamol (Methocarbamol) 750 mg PO Q6H PRN PRN PRN Reason: Muscle Aches Last Admin: 08/20/18 20:58 Dose: 750 mg Nicotine (Nicoderm Cq (Pbkc)) 21 mg TRANSDERM. DAILY ERASMO Nutritional Formula (Lactose Free) (Ensure Enlive) 120 ml PO 4X/DAY ERASMO Sodium Chloride () 5 - 15 ml IV UD PRN PRN Reason: SALINE FLUSH Medical Necessity - Tobacco Use Smoking Status: Current every day smoker Tobacco Use: Cigarettes Assessment/Plan All Active Problems Opiate withdrawal (Acute) There is a 33-year-old gentleman with history of chronic opioid, heroin IV use and dependence admitted through ER for stabilization of acute opioid withdrawal syndrome. Patient was having tremors, shakiness, sweating, diaphoresis and abdominal cramps and muscles ache and pains. U tox was positive of opioids, barbiturates and amphetamines. Serum alcohol 6.0. 1. Acute opioid withdrawal syndrome secondary to chronic IV heroin use and dependence: On [facility] orders set for medical stabilization protocol for opioid use and dependence. [facility] to see on Wednesday and set up for drug rehab 2. Polysubstance use; IV heroin dependence, methamphetamine, barbiturates, chronic cigarette smoking and dependence: Counseling was done. Stable. 3. DVT prophylaxis: Early ambulation encouraged. No prophylaxis indicated Laboratory Results 08/20/18 17:50: WBC 11.6 H, RBC 5.03, Hgb 14.9, Hct 42.0, MCV 83.5, MCH 29.6, MCHC 35.5, RDW 13.3, RDW Differential 40.0, Plt Count 353, MPV 9.3, Immature Gran % (Auto) 0.300, Neut % (Auto) 62.6, Lymph % (Auto) 27.4, [place] % (Auto) 7.8, Eos % (Auto) 1.6, Baso % (Auto) 0.3, Absolute Neuts (auto) 7.3, Absolute Lymphs (auto) 3.18, Total Counted Not Reportable 08/20/18 17:50: Sodium 134 L, Potassium 3.5, Chloride 99, Carbon Dioxide 28.0, Anion Gap 7, BUN 12, Creatinine 0.69 L, Estim Creat Clear Calc 150.29, Est GFR (MDRD) Af Amer 172, Est GFR (MDRD) Non-Af 143, BUN/Creatinine Ratio 17.5, Glucose 88, Calcium 9.0, Total Bilirubin 0.80, AST 24, ALT 48, Alkaline Ph osphatase 106, Total Protein 7.9, Albumin 4.5, Globulin 3.4, Albumin/Globulin Ratio 1.3 08/20/18 17:50: Ethyl Alcohol 6.0 08/20/18 17:50: Urine Opiates Screen POSITIVE H, Urine Methadone Screen NEGATIVE, Ur Barbiturates Screen POSITIVE H, Ur Phencyclidine Scrn NEGATIVE, Ur Amphetamines Screen POSITIVE H, U Methamphetamin-MDMA NEGATIVE, U Benzodiazepines Scrn NEGATIVE, Urine Cocaine Screen NEGATIVE, U Cannabinoids Screen NEGATIVE, Ur Drug Screen Comment Code Visit Inpatient E&M: 00873 Subs Hosp L2
[2018-08-21] MEDS: chlordiazePOXIDE 25 MG Capsule PO ×3 (08:09→23:03)
[2018-08-21] MEDS: Acetaminophen 500 MG Tablet PO (08:09)
[2018-08-21 08:26] VITALS: BP 106/62; PULSE 68; RESP 16; TEMP 36.6; O2SAT 99
[2018-08-21 13:58] VITALS: BP 115/78; PULSE 53; RESP 16; TEMP 36.4; O2SAT 98
[2018-08-21] MEDS: Methocarbamol 750 MG Tablet PO ×2 (17:04→23:03)
[2018-08-21 20:27] VITALS: BP 109/66; PULSE 58; RESP 16; TEMP 36.5
[2018-08-22 04:54] VITALS: BP 102/60; PULSE 52; RESP 16; TEMP 36.3
[2018-08-22] MEDS: Buprenorphine HCl 2 MG TAB.SUBL SL ×3 (04:56→23:47)
[2018-08-22 08:14] VITALS: BP 101/59; PULSE 60; RESP 16; TEMP 37
[2018-08-22 09:15] VITALS: PULSE 80
--- NOTE | 2018-08-22 11:03 | PCM.PN.HOSP ---
Subjective: Patient seen and examined. He had an uneventful night and has no complaints. Review of systems otherwise negative. Vitals/I&O's: Vital Signs Temp Pulse Resp BP Pulse Ox 98.6 F 80 16 101/59 L 98 08/22/18 08:14 08/22/18 09:15 08/22/18 08:14 08/22/18 08:14 08/21/18 13:58 Oxygen Delivery Method Room Air Weight: 148 lb 5.938 oz Body Mass Index (BMI) 21.9 Intake and Output for Last 24 Hours 08/20/18 08/21/18 08/22/18 23:59 23:59 23:59 Intake Total 2030 437 / 437 Balance 2030 437 / 437 General: Alert, Oriented x3, Cooperative, No apparent distress HEENT: Atraumatic, PERRLA, EOMI, Normocephalic Oral: Moist Mucosa Neck: Supple, No JVD, Negative Carotid Bruits Lungs: Clear to auscultation, Normal air movement, No rhonchi, No wheeze, No rales Cardiovascular: Regular rate, Regular Rhythm, Normal S1, Normal S2, No murmurs Abdomen: Bowel Sounds Present, Soft, Non Tender, Non-Distended, No Hepato-splenomegaly Extremities: No clubbing, No cyanosis, No edema, Capillary Refill Less than 3 Seconds Skin: No rashes, No breakdown, - - Multiple tattoos Musculoskeletal: No Tenderness to Palpation of Joints or Extremities Lymphatic: No Cervical, Supraclavicular, or Inguinal Adenopathy Neurological: Cranial nerves II-XII grossly intact, Neuro grossly intact, Motor Exam 5/5 strength throughout Psych/Mental Status: Normal Affect, Appropriate, Alert and oriented to time, place, person, mood and affect Current Medications Acetaminophen (Tylenol) 500 mg PO Q4H PRN PRN PRN Reason: Temp > 100.4 F Last Admin: 08/21/18 08:09 Dose: 500 mg Buprenorphine HCl (Buprenorphine Hcl) 2 mg SL Q8H ERASMO; Taper Stop: 08/24/18 00:30 Last Admin: 08/22/18 04:56 Dose: 2 mg Chlordiazepoxide (Librium) 25 mg PO Q6H PRN PRN PRN Reason: Moderate-Severe Anxiety Last Admin: 03/31/19 23:03 Dose: 25 mg Clonidine (Catapres) 0.1 mg PO Q2H PRN PRN PRN Reason: Hot/Cold Sweats or Anxiety Last Admin: 08/21/18 00:45 Dose: 0.1 mg Ibuprofen (Motrin) 600 mg PO Q8H PRN PRN PRN Reason: Mild-Moderate Pain (1-5/10) Last Admin: 08/21/18 13:54 Dose: 600 mg Methocarbamol (Methocarbamol) 750 mg PO Q6H PRN PRN PRN Reason: Muscle Aches Last Admin: 08/21/18 23:03 Dose: 750 mg Nicotine (Nicoderm Cq (Pbkc)) 21 mg TRANSDERM. DAILY ERASMO Last Admin: 08/22/18 09:16 Dose: 21 mg Nutritional Formula (Lactose Free) (Ensure Enlive) 120 ml PO 4X/DAY ERASMO Last Admin: 08/22/18 09:16 Dose: 120 ml Sodium Chloride () 5 - 15 ml IV UD PRN PRN Reason: SALINE FLUSH Medical Necessity - Tobacco Use Smoking Status: Current every day smoker Tobacco Use: Cigarettes Assessment/Plan All Active Problems Opiate withdrawal (Acute) 1. Acute opioid withdrawal Chronic IV heroin user. Opiate withdrawal protocol with buprenorphine. [facility]. Patient wants to go to an inpatient rehab facility after discharge. 2. Polysubstance abuse: Also uses methamphetamine, barbiturates, cigarettes. Patient counseled to quit. Urine tox positive for opiates, barbiturates and amphetamines. DVT prophylaxis: Encourage ambulation. Code Visit Inpatient E&M: 59499 Subs Hosp L2
--- NOTE | 2018-08-22 11:06 | PN_ITS ---
Subjective: Patient seen and examined. He had an uneventful night and has no complaints. Review of systems otherwise negative. Vitals/I&O's: Vital Signs Temp Pulse Resp BP Pulse Ox 98.6 F 80 16 101/59 L 98 08/22/18 08:14 08/22/18 09:15 08/22/18 08:14 08/22/18 08:14 08/21/18 13:58 Oxygen Delivery Method Room Air Weight: 148 lb 5.938 oz Body Mass Index (BMI) 21.9 Intake and Output for Last 24 Hours 08/20/18 08/21/18 08/22/18 23:59 23:59 23:59 Intake Total 2030 437 / 437 Balance 2030 437 / 437 General: Alert, Oriented x3, Cooperative, No apparent distress HEENT: Atraumatic, PERRLA, EOMI, Normocephalic Oral: Moist Mucosa Neck: Supple, No JVD, Negative Carotid Bruits Lungs: Clear to auscultation, Normal air movement, No rhonchi, No wheeze, No rales Cardiovascular: Regular rate, Regular Rhythm, Normal S1, Normal S2, No murmurs Abdomen: Bowel Sounds Present, Soft, Non Tender, Non-Distended, No Hepato- splenomegaly Extremities: No clubbing, No cyanosis, No edema, Capillary Refill Less than 3 Seconds Skin: No rashes, No breakdown, - - Multiple tattoos Musculoskeletal: No Tenderness to Palpation of Joints or Extremities Lymphatic: No Cervical, Supraclavicular, or Inguinal Adenopathy Neurological: Cranial nerves II-XII grossly intact, Neuro grossly intact, Motor Exam 5/5 strength throughout Psych/Mental Status: Normal Affect, Appropriate, Alert and oriented to time, place, person, mood and affect Current Medications Acetaminophen (Tylenol) 500 mg PO Q4H PRN PRN PRN Reason: Temp > 100.4 F Last Admin: 08/21/18 08:09 Dose: 500 mg Buprenorphine HCl (Buprenorphine Hcl) 2 mg SL Q8H ERASMO; Taper Stop: 08/24/18 00:30 Last Admin: 08/22/18 04:56 Dose: 2 mg Chlordiazepoxide (Librium) 25 mg PO Q6H PRN PRN PRN Reason: Moderate-Severe Anxiety Last Admin: 08/21/18 23:03 Dose: 25 mg Clonidine (Catapres) 0.1 mg PO Q2H PRN PRN PRN Reason: Hot/Cold Sweats or Anxiety Last Admin: 08/21/18 00:45 Dose: 0.1 mg Ibuprofen (Motrin) 600 mg PO Q8H PRN PRN PRN Reason: Mild-Moderate Pain (1-5/10) Last Admin: 08/21/18 13:54 Dose: 600 mg Methocarbamol (Methocarbamol) 750 mg PO Q6H PRN PRN PRN Reason: Muscle Aches Last Admin: 08/21/18 23:03 Dose: 750 mg Nicotine (Nicoderm Cq (Pbkc)) 21 mg TRANSDERM. DAILY ERASMO Last Admin: 08/22/18 09:16 Dose: 21 mg Nutritional Formula (Lactose Free) (Ensure Enlive) 120 ml PO 4X/DAY ERASMO Last Admin: 08/22/18 09:16 Dose: 120 ml Sodium Chloride () 5 - 15 ml IV UD PRN PRN Reason: SALINE FLUSH Medical Necessity - Tobacco Use Smoking Status: Current every day smoker Tobacco Use: Cigarettes Assessment/Plan All Active Problems Opiate withdrawal (Acute) 1. Acute opioid withdrawal * Chronic IV heroin user. * Opiate withdrawal protocol with buprenorphine. * [facility] on board. Patient wants to go to an inpatient rehab facility after discharge. * 2. Polysubstance abuse: * Also uses methamphetamine, barbiturates, cigarettes. Patient counseled to quit. * Urine tox positive for opiates, barbiturates and amphetamines. * DVT prophylaxis: Encourage ambulation. Code Visit Inpatient E&M: 14971 Subs Hosp L2
--- NOTE | 2018-08-22 11:32 | [facility] ---
[facility] consult complete. [facility] will be taking this patient on and assisting with discharge planning.
[2018-08-22 13:50] VITALS: BP 120/68; PULSE 79; RESP 16; TEMP 36.3
[2018-08-22 16:53] VITALS: BP 115/74; PULSE 66; RESP 16; TEMP 36.5
[2018-08-22] MEDS: Ibuprofen 600 MG Tablet PO (16:57)
[2018-08-22] MEDS: chlordiazePOXIDE 25 MG Capsule PO ×2 (16:57→23:48)
[2018-08-22 23:30] VITALS: BP 111/68; PULSE 62; RESP 16; TEMP 36.4
[2018-08-22] MEDS: cloNIDine HCl 0.1 MG Tablet PO (23:47)
[2018-08-22] MEDS: Methocarbamol 750 MG Tablet PO (23:47)
--- NOTE | 2018-08-23 09:07 | NEWVISION ---
Patient has scheduled inpatient admission at [facility]. Patient is to arrive by 2pm. Patient states his mother will transport him from hospital to the facility.
--- NOTE | 2018-08-23 10:05 | PCM.DC ---
You will use the following diet at home:: No restrictions Your food should be the consistency of: Regular Your liquids should be the consistency of: Regular/Thin Discharge Activity: Return to Normal Activity Weight Bearing Status: Weight bearing as tolerated Instructions: ED Withdrawal Narcotic, ED Narcotic Abuse Allergies/Adverse Reactions: Allergies No Known Allergies Allergy (Verified 08/20/18 15:23) Medications to take at Discharge No Known/Unobtainable [No Known Home Medications] 03/28/17 Primary Care Physician: Care Physician,No Primary [Primary Care Provider] - Test Results: Test results from this visit will be discussed in further detail at your follow-up appointment, if applicable. Please Follow Up With: Berny Mondragon MD - [phone] When: please follow up with Dr Mondragon to establish PCP relationship Proposed Discharge Date: 08/23/18
[2018-08-23 10:10] VITALS: BP 120/73; PULSE 76; RESP 18; TEMP 36.4
--- NOTE | 2018-08-23 10:10 | DCINST_ITS ---
You will use the following diet at home:: No restrictions Your food should be the consistency of: Regular Your liquids should be the consistency of: Regular/Thin Discharge Activity: Return to Normal Activity Weight Bearing Status: Weight bearing as tolerated Instructions: ED Withdrawal Narcotic, ED Narcotic Abuse Allergies/Adverse Reactions: Allergies No Known Allergies Allergy (Verified 08/20/18 15:23) Medications to take at Discharge No Known/Unobtainable [No Known Home Medications] 03/28/17 Primary Care Physician: Care Physician,No Primary [Primary Care Provider] - Test Results: Test results from this visit will be discussed in further detail at your follow- up appointment, if applicable. Please Follow Up With: Berny Mondragon MD - [phone] When: please follow up with Dr Mondragon to establish PCP relationship Proposed Discharge Date: 08/23/18
[2018-08-23] MEDS: Buprenorphine HCl 2 MG TAB.SUBL SL (11:29)
--- NOTE | 2018-08-23 15:08 | PCM.DC.SUM ---
Discharge Date and Diagnosis Date of Admission: 08/20/18 Date of Discharge: 08/23/18 - Primary Discharge Diagnosis opiate withdrawal - Secondary Discharge Diagnosis Chronic Problems Heroin abuse (Chronic) Hospital Course and Treatment Consultations 08/20/18 21:54 Consult: Juwan Myrick Routine Consulting Provider: Consulted Physician Type:: [facility] Reason for consult:: heroin withdrawal Operations: None Procedures: None Summary of Care Provided: The patient is a 33 year old M who has a history of opiate abuse. He was admitted for opiate withdrawal. He usually injects heroin and occasionally use methamphetamine as well. Complaint of feeling shaky and sweaty with abdominal cramping and muscle cramping at time of admission. U tox was positive for opiates, barbiturates and methamphetamine. He was admitted and managed for acute 2. Withdrawal and was started on buprenorphine protocol as per Juwan Myrick. Patient tolerated 3 days of detox and remained stable. He was discharged to [facility] on 08/23/2018 to continue his inpatient detox. He is to follow-up with his primary care doctor in 1 week. Patient seen and examined prior to discharge. She had no complaints and felt well. Review of systems otherwise negative. Labs and vitals reviewed. Home medications reviewed and reconciled. o/e: Vital Signs Height 5 ft 8.9 in Weight: 148 lb 5.938 oz Weight in Pounds 148.4 lbs Pulse Ox 98 Temperature 97.5 F Pulse Rate 76 Respiratory Rate 18 Blood Pressure 120/73 Blood Pressure Position Semi-Fowlers [] General: Alert, Oriented x3, Cooperative, No apparent distress HEENT: Atraumatic, PERRLA, EOMI, Normocephalic Oral: Moist Mucosa Neck: Supple, No JVD, Negative Carotid Bruits Lungs: Clear to auscultation, Normal air movement, No rhonchi, No wheeze, No rales Cardiovascular: Regular rate, Regular Rhythm, Normal S1, Normal S2, No murmurs Abdomen: Bowel Sounds Present, Soft, Non Tender, Non-Distended, No Hepato-splenomegaly Extremities: No clubbing, No cyanosis, No edema, Capillary Refill Less than 3 Seconds Skin: No rashes, No breakdown, - - Multiple tattoos Musculoskeletal: No Tenderness to Palpation of Joints or Extremities Lymphatic: No Cervical, Supraclavicular, or Inguinal Adenopathy Neurological: Cranial nerves II-XII grossly intact, Neuro grossly intact, Motor Exam 5/5 strength throughout Psych/Mental Status: Normal Affect, Appropriate, Alert and oriented to time, place, person, mood and affect Plan as discussed above. - Physical Exam Vital Signs Temp Pulse Resp BP Pulse Ox 97.5 F L 76 18 120/73 98 08/23/18 10:10 08/23/18 10:10 08/23/18 10:10 08/23/18 10:10 08/21/18 13:58 Oxygen Delivery Method Room Air Weight: 148 lb 5.938 oz Body Mass Index (BMI) 21.9 Intake and Output for Last 24 Hours 08/21/18 08/22/18 08/23/18 23:59 23:59 23:59 Intake Total 2030 437 / 437 Balance 2030 437 / 437 Discharge Diet: No Restrictions Discharge Activity: Return to Normal Activity Weight Bearing Status: Weight bearing as tolerated Home Medications: Medications to take at Discharge No Known/Unobtainable [No Known Home Medications] 03/28/17 Primary Care Physician: Care Physician,No Primary [Primary Care Provider] - Please Follow Up With: Berny Mondragon MD - [phone] When: please follow up with Dr Mondragon to establish PCP relationship Patient Instructions: ED Narcotic Abuse, ED Withdrawal Narcotic Disposition: Inpt Rehab Unit/Facility - [facility] Minutes spent on discharge:: 35 Patient Condition:: Stable Medical Necessity - Tobacco Use Smoking Status: Current every day smoker Tobacco Use: Cigarettes Meaningful Use Info Meaningful Use Diagnoses (Choose all that apply): None applicable Code Visit Inpatient E&M: 64938 Disch Hosp
== END 2018-08-23 11:34 | disposition home or self-care (01) | DRG 773 ==
LOC: ED 18:27 → MS2 20:04
PROVIDERS: Admitting Provider Internal Medicine; Emergency Provider Emergency Medicine; Visit Provider Student in an Organized Health Care Education/Training Program
DX: F11.23 Opioid dependence with withdrawal (principal); F17.210 Nicotine dependence, cigarettes, uncomplicated; F13.10 Sedative, hypnotic or anxiolytic abuse, uncomplicated; F15.10 Other stimulant abuse, uncomplicated
CPT/HCPCS: 80053; 80307; 80320; 85025; 97802; 99283; 99406; G0480

== ENCOUNTER 2018-10-14 22:02 | Observation (INO) | payer MEDICAID, SELFPAY ==
[2018-10-14 22:06] VITALS: BP 150/81; PULSE 80; RESP 18; TEMP 36.4; O2SAT 100; BMI 21.1
[2018-10-14 23:42] LABS: Absolute Lymphocyte Count 4.07 X10^3/ul (0.83-4.51); Absolute Neutrophil Count 3.6 X10^3/uL (2.0-7.7); Basophil# 0.07 X10^3/uL; Basophil% 0.8 % (0-1); Eosinophil# 0.23 X10^3/uL; Eosinophils% 2.6 % (0-5); Hematocrit 37.6 % (40-54); Hemoglobin 12.9 g/dl (13.0-16.5); Lymphocyte # 4.07 X10^3/ul (4.0); Lymphocyte % 46.7 % (19-41); Mean Corp Hgb Conc 34.3 g/gl (32-36); Mean Corpuscular Hgb 28.8 pg (27.0-32.0); Mean Corpuscular Volume 83.9 fL (80-94); Mean Platelet Vol. 8.5 fl (6.2-12.0); Monocyte# 0.66 X10^3/uL; Monocyte% 7.6 % (0-10); Neutrophil # 3.64 X10^3/uL (2.7-7.7); Neutrophil % 41.7 % (47-70); Platelet Count 376 K/mm3 (150-450); RBC Distribution Width CV 13.6 % (11.6-14.6); RBC Distribution Width SD 42.2 fl (35.1-43.9); Red Blood Count 4.48 M/mm3 (4.6-6.2); White Blood Count 8.7 K/mm3 (4.4-11.0)
[2018-10-14 23:43] LABS: POSITIVE COUNT NO; POSITIVE DIFFERENTIAL NO; POSITIVE MORPHOLOGY NO
[2018-10-14 23:50] LABS: Amphetamine Urine VISTA POSITIVE (<1000 ng/mL); Barbiturate Urine VISTA NEGATIVE (< 200 ng/mL); Benzodiazepine Urine VISTA NEGATIVE (< 200 ng/mL); Cocaine Urine VISTA NEGATIVE (< 300 ng/mL); Ecstacy Urine VISTA NEGATIVE (< 500 ng/mL); Methadone Urine VISTA NEGATIVE (< 300 ng/mL); PCP Urine VISTA NEGATIVE (< 25 ng/mL); THC Urine VISTA NEGATIVE (< 50 ng/mL); Vista UDS pH Range 7
[2018-10-15] VITALS (9 sets, daily range): BP systolic 125–135; BP diastolic 63–87; PULSE 64–84; RESP 14–18; TEMP 36.3–37.1; O2SAT 98; BMI 21.1; BMI 21.2
[2018-10-15 00:02] LABS: Anion Gap 6 (5-15); BUN 8 mg/dL (7-18); BUN/Creat Ratio 10.6 RATIO (10-20); Calcium,Total 8.2 mg/dL (8.5-10.1); Chloride 106 mmol/L (98-107); Creatinine, Serum 0.76 mg/dL (0.70-1.30); EST Glomerular Filtration Rate 128 mL/min (>60); Est Glom Filt Rate - Afr Amer 154 mL/min (>60); Estimated Creatinine Clearance 129.48 ml/min; Glucose 90 mg/dL (74-106); Potassium 3.9 mmol/L (3.5-5.1); Sodium Level 141 mmol/L (136-145)
--- NOTE | 2018-10-15 00:18 | ED.VIS.GEN ---
History of Present Illness Chief Complaint: Substance Abuse Informant: Patient, Family Onset: Today Associated Symptoms: restlessness, fatigue, nausea w/ dry heaves, muscle/back pain Narrative: Patient has been addicted to IV heroin for 2 years, was last in detox 1-2 months ago here, and relapsed. His last dose was around 18 hours ago, he has been using other drugs as well but the heroin is the only one that he uses consistently. He has been using methamphetamine heavily for the past 3 days and has not slept which is mainly why he is feeling very fatigued now, he did use that a couple times today. He also used crack cocaine 2 days ago but does not use that very often. He denies having any abdominal pain, fevers, diarrhea, or sweating. He states he is tearing and has runny nose quite a bit. He has no suicidal ideation. His parents come supporting him here in the emergency department. - Past Medical History (1) Heroin abuse Status: Chronic Past Medical History - Allergies and Home Meds Allergies/Adverse Reactions: Allergies No Known Allergies Allergy (Verified 10/14/18 22:08) Primary Care Physician: Care Physician,No Primary [Primary Care Provider] - Surgical History: no surgical history Lives: With Family Smoking Status: Current every day smoker Alcohol: None Drugs: Cocaine, Heroin, - - Methamphetamine - Family History Maternal Family History: Reports: No pertinent history Additional Family History: Patient is adopted Paternal Family History: Reports: No pertinent history Review of Systems General: Reports: Malaise. Denies: Chills, Fever, Sweats Eyes: Denies: Visual changes - bilaterally, Diplopia ENT: Denies: Rhinorrhea, Sore throat Cardiovascular: Denies: Chest pain, Palpitations Respiratory: Denies: Dyspnea, Cough, Dyspnea on exertion Gastrointestinal: Reports: Nausea, Vomiting. Denies: Abdominal pain, Diarrhea, Melena, Hematochezia Genitourinary: Denies: Dysuria, Hematuria, Frequency Musculoskeletal: Reports: Myalgias, Back pain, Extremity Pain. Denies: Arthralgias, Neck pain, Swelling Skin: Reports: - - sore swollen area right upper arm x 1 month at injection site. Denies: Rash, Wounds Neurological: Denies: Headache, Weakness, Numbness Physical Exam Vital Signs/Narrative: Vital Signs Temp Pulse Resp BP Pulse Ox 10/15/18 00:04 84 15 126/87 H 98 10/14/18 22:06 97.6 F L 80 18 150/81 H 100 Inital Vital Signs reviewed: Yes General: Well nourished, Well developed, No Acute Distress Head: Normocephalic, Atraumatic Eyes: Perrl, EOMI ENT: Moist mucous membranes, Nasal congestion Neck: Supple, Nontender Cardiovascular: Regular rate, Regular rhythm, No murmurs Respiratory: No distress, CTA bilaterally, Chest nontender Abdomen: Soft, Nontender, Nondistended, Normal bowel sounds Back: Nontender, Normal Inspection Extremities: No edema, Tenderness - non-erythemetous 2cm SQ nodule anterior right upper arm, tender, soft. long superficial cord next to this, and not associated with it. mildly tender. no erythema/lymphangitis. Skin: Normal color, No rash Neurological: Alert, Oriented x3, Cranial nerves II-XII grossly intact, Normal Strength, Normal Sensation, - - tremulous w/ arms outstretched Psychological: Normal affect, Normal Mood Diagnostic/Tx/Re-eval Laboratory Tests 10/14/18 10/14/18 10/14/18 Range/Units 23:26 23:26 23:26 WBC 8.7 (4.4-11.0) K/mm3 RBC 4.48 L (4.6-6.2) M/mm3 Hgb 12.9 L (13.0-16.5) g/dl Hct 37.6 L (40-54) % MCV 83.9 (80-94) fL MCH 28.8 (27.0-32.0) pg MCHC 34.3 (32-36) g/gl RDW 13.6 (11.6-14.6) % RDW Differential 42.2 (35.1-43.9) fl Plt Count 376 (150-450) K/mm3 MPV 8.5 (6.2-12.0) fl Immature Gran % (Auto) 0.600 (0.0-0.9) % Neut % (Auto) 41.7 L (47-70) % Lymph % (Auto) 46.7 H (19-41) % [place] % (Auto) 7.6 (0-10) % Eos % (Auto) 2.6 (0-5) % Baso % (Auto) 0.8 (0-1) % Absolute Neuts (auto) 3.6 (2.0-7.7) X10^3/uL Absolute Lymphs (auto) 4.07 (0.83-4.51) X10^3/ul Total Counted Not Reportable Sodium 141 (136-145) mmol/L Potassium 3.9 (3.5-5.1) mmol/L Chloride 106 (98-107) mmol/L Carbon Dioxide 29.0 (21.0-32.0) mmol/L Anion Gap 6 (5-15) BUN 8 (7-18) mg/dL Creatinine 0.76 (0.70-1.30) mg/dL Estim Creat Clear Calc 129.48 ml/min Est GFR (MDRD) Af Amer 154 (>60) mL/min Est GFR (MDRD) Non-Af 128 (>60) mL/min BUN/Creatinine Ratio 10.6 (10-20) RATIO Glucose 90 (74-106) mg/dL Calcium 8.2 L (8.5-10.1) mg/dL Urine Opiates Screen (< 300 ng/mL) Urine Methadone Screen (< 300 ng/mL) Ur Barbiturates Screen (< 200 ng/mL) Ur Phencyclidine Scrn (< 25 ng/mL) Ur Amphetamines Screen (<1000 ng/mL) U Methamphetamin-MDMA (< 500 ng/mL) U Benzodiazepines Scrn (< 200 ng/mL) Urine Cocaine Screen (< 300 ng/mL) U Cannabinoids Screen (< 50 ng/mL) Ur Drug Screen Comment Ethyl Alcohol 4.0 mg/dL 10/14/18 Range/Units 22:30 WBC (4.4-11.0) K/mm3 RBC (4.6-6.2) M/mm3 Hgb (13.0-16.5) g/dl Hct (40-54) % MCV (80-94) fL MCH (27.0-32.0) pg MCHC (32-36) g/gl RDW (11.6-14.6) % RDW Differential (35.1-43.9) fl Plt Count (150-450) K/mm3 MPV (6.2-12.0) fl Immature Gran % (Auto) (0.0-0.9) % Neut % (Auto) (47-70) % Lymph % (Auto) (19-41) % [place] % (Auto) (0-10) % Eos % (Auto) (0-5) % Baso % (Auto) (0-1) % Absolute Neuts (auto) (2.0-7.7) X10^3/uL Absolute Lymphs (auto) (0.83-4.51) X10^3/ul Total Counted Sodium (136-145) mmol/L Potassium (3.5-5.1) mmol/L Chloride (98-107) mmol/L Carbon Dioxide (21.0-32.0) mmol/L Anion Gap (5-15) BUN (7-18) mg/dL Creatinine (0.70-1.30) mg/dL Estim Creat Clear Calc ml/min Est GFR (MDRD) Af Amer (>60) mL/min Est GFR (MDRD) Non-Af (>60) mL/min BUN/Creatinine Ratio (10-20) RATIO Glucose (74-106) mg/dL Calcium (8.5-10.1) mg/dL Urine Opiates Screen POSITIVE H (< 300 ng/mL) Urine Methadone Screen NEGATIVE (< 300 ng/mL) Ur Barbiturates Screen NEGATIVE (< 200 ng/mL) Ur Phencyclidine Scrn NEGATIVE (< 25 ng/mL) Ur Amphetamines Screen POSITIVE H (<1000 ng/mL) U Methamphetamin-MDMA NEGATIVE (< 500 ng/mL) U Benzodiazepines Scrn NEGATIVE (< 200 ng/mL) Urine Cocaine Screen NEGATIVE (< 300 ng/mL) U Cannabinoids Screen NEGATIVE (< 50 ng/mL) Ur Drug Screen Comment Ethyl Alcohol mg/dL - Medical Decision Making Cina score is 15. He is medically cleared for detox admission. Discussed with hospitalist. ED Disposition - Plan for ED Patient: Disposition: Acute Care Hospital [facility] Diagnosis: Opiate withdrawal, Opiate dependence, Drug abuse, cocaine type, Methamphetamine abuse, episodic
--- NOTE | 2018-10-15 00:54 | HP.PCM_ITS ---
Problem List (1) Chronic hepatitis C Status: Chronic (2) Drug abuse, cocaine type Status: Chronic (3) Methamphetamine abuse, episodic Status: Chronic (4) Opiate dependence Status: Chronic (5) Opiate withdrawal Status: Acute (6) Heroin abuse Status: Chronic (7) Nicotine dependence Status: Chronic History of Present Illness Date of Admission: 10/15/18 Chief Complaint: Acute opioid withdrawal The patient is a 33 year old M with history of polysubstance use, previous to admission for heroin detox 1 in 2016 and last one in 08/2018 came to ER with opioid withdrawal syndrome including runny nose, sneeze, anxiety, abdominal cramps. Last use of IV heroin was 18 hours ago. He has been using heroin since age of 22, 1 g daily IV. He also uses cocktail with IV methamphetamine, crack cocaine, smokes cigarettes. He smokes half pack daily since age of 18. He denies use of benzodiazepines. Denies alcohol use. The patient is accompanied with his parents in ED. [] Past Medical History Past Medical History (Chronic Problems): Chronic Problems Opiate dependence (Chronic) Drug abuse, cocaine type (Chronic) Methamphetamine abuse, episodic (Chronic) Chronic hepatitis C (Chronic) Nicotine dependence (Chronic) Heroin abuse (Chronic) Allergies No Known Allergies Allergy (Verified 10/14/18 22:08) Home Medications: Ambulatory Orders Medication Instructions Recorded No Known/Unobtainable [No Known 03/28/17 Home Medications] Surgical History: no surgical history Lives: With Family Smoking Status: Current every day smoker Alcohol: None Drugs: Cocaine, Heroin, - - Methamphetamine - *Family History Maternal History Items: No pertinent history Paternal History Items: No pertinent history Review of Systems Constitutional: Reports: Malaise, Weakness, Fatigue Eyes: Reports: - - Runny nose. Mild red eye probably secondary to drug use. Patient did not sleep for 3 days. HEENT: Reports: Head Aches. Denies: Sinus Congestion, Sinus Drainage Cardiovascular: Denies: Chest Pain, Palpitations Respiratory: Denies: Cough, Shortness of breath at rest, Sputum production Gastrointestinal: Reports: Abdominal Pain, Nausea. Denies: Vomiting Genitourinary: Denies: Dysuria Musculoskeletal: Reports: Arm Pain. Denies: Joint Pain, Joint Tenderness Skin: Denies: Rash, Wounds Neurological: Denies: Focal weakness, Numbness, Tingling Psychiatric: Reports: Anxiety. Denies: Depression, Homicidal Ideations, Suicidal Ideations Hematologic/ Lymphatic: Denies: Easy Bruising, Easy Bleeding VTE Information - Inpt Only VTE Present on Admission: No VTE Mechan Device Prophylaxis: None VTE Pharm Prophylaxis ordered?: Yes Reason prophylaxis not ordered:: Procedure Not Indicated - Low risk, early ambulation encouraged. Patient Problems: Active and Suspected Problems Opiate withdrawal (Acute) - Physical Exam General: Oriented x3, Cooperative, Lethargic - Patient is sleepy but wakes up and answers questions appropriately., - HEENT: Atraumatic, PERRLA, EOMI, Normocephalic, - - Rhinorrhea Oral: Dry Mucosa, - Neck: Supple, No JVD, Negative Carotid Bruits Lungs: Clear to auscultation, Normal air movement, No rhonchi, No wheeze Cardiovascular: Regular rate, Regular Rhythm, Normal S1, Normal S2, No murmurs Abdomen: Bowel Sounds Present, Soft, Non Tender, Non-Distended Extremities: No edema, Capillary Refill Less than 3 Seconds Skin: No rashes, No breakdown, - - Skin track meyer present in both upper extremity There is nodular, firm swelling in the right upper arm along the line of the vein most probably chronic thrombophlebitis. Musculoskeletal: No Tenderness to Palpation of Joints or Extremities Lymphatic: No Cervical, Supraclavicular, or Inguinal Adenopathy Neurological: Cranial nerves II-XII grossly intact, Deep Tendon Reflexes 2+/4 and Symmetrical, Neuro grossly intact Psych/Mental Status: Normal Affect, Appropriate Vital Signs Temp Pulse Resp BP Pulse Ox 97.6 F L 84 15 126/87 H 98 10/14/18 22:06 10/15/18 00:04 10/15/18 00:04 10/15/18 00:04 10/15/18 00:04 Oxygen Delivery Method Room Air Weight: 143 lb 4.807 oz Body Mass Index (BMI) 21.1 Laboratory Tests Past 24 Hrs 10/14/18 10/14/18 10/14/18 22:30 23:26 23:26 WBC 8.7 RBC 4.48 L Hgb 12.9 L Hct 37.6 L MCV 83.9 MCH 28.8 MCHC 34.3 RDW 13.6 RDW Differential 42.2 Plt Count 376 MPV 8.5 Immature Gran % (Auto) 0.600 Neut % (Auto) 41.7 L Lymph % (Auto) 46.7 H [place] % (Auto) 7.6 Eos % (Auto) 2.6 Baso % (Auto) 0.8 Absolute Neuts (auto) 3.6 Absolute Lymphs (auto) 4.07 Total Counted Not Reportable Sodium 141 Potassium 3.9 Chloride 106 Carbon Dioxide 29.0 Anion Gap 6 BUN 8 Creatinine 0.76 Estim Creat Clear Calc 129.48 Est GFR (MDRD) Af Amer 154 Est GFR (MDRD) Non-Af 128 BUN/Creatinine Ratio 10.6 Glucose 90 Calcium 8.2 L Urine Opiates Screen POSITIVE H Urine Methadone Screen NEGATIVE Ur Barbiturates Screen NEGATIVE Ur Phencyclidine Scrn NEGATIVE Ur Amphetamines Screen POSITIVE H U Methamphetamin-MDMA NEGATIVE U Benzodiazepines Scrn NEGATIVE Urine Cocaine Screen NEGATIVE U Cannabinoids Screen NEGATIVE Ur Drug Screen Comment Ethyl Alcohol 10/14/18 23:26 WBC RBC Hgb Hct MCV MCH MCHC RDW RDW Differential Plt Count MPV Immature Gran % (Auto) Neut % (Auto) Lymph % (Auto) [place] % (Auto) Eos % (Auto) Baso % (Auto) Absolute Neuts (auto) Absolute Lymphs (auto) Total Counted Sodium Potassium Chloride Carbon Dioxide Anion Gap BUN Creatinine Estim Creat Clear Calc Est GFR (MDRD) Af Amer Est GFR (MDRD) Non-Af BUN/Creatinine Ratio Glucose Calcium Urine Opiates Screen Urine Methadone Screen Ur Barbiturates Screen Ur Phencyclidine Scrn Ur Amphetamines Screen U Methamphetamin-MDMA U Benzodiazepines Scrn Urine Cocaine Screen U Cannabinoids Screen Ur Drug Screen Comment Ethyl Alcohol 4.0 Assessment/Plan All Active Problems Opiate withdrawal (Acute) The patient is a 33 year old M with history of polysubstance use, previous to admission for heroin detox 1 in 2016 and last one in 08/2018 came to ER with opioid withdrawal syndrome including runny nose, sneeze, anxiety, abdominal cramps. Last use of IV heroin was 18 hours ago. He has been using heroin since age of 22, 1 g daily IV. He also uses cocktail with IV methamphetamine, crack cocaine, smokes cigarettes. He smokes half pack daily since age of 18. He denies use of benzodiazepines. Denies alcohol use. [] 1. Acute opioid withdrawal syndrome: Patient is being admitted on [facility] floor. Started on orders set for opioid withdrawal as per [facility] protocol. On Librium schedule and taper dose. CINA monitoring. 1 L IV fluid Ringer lactate. 2. Chronic opioid use and dependence: Patient uses cocktail of heroin and methamphetamine. 3. Polysubstance use and dependence including methamphetamine, crack cocaine: Counseling done. [facility] consult for rehab. 4. Chronic nicotine dependence: Patient smokes cigarettes. On nicotine patch. 5. Chronic hepatitis C: Patient has never been treated as per the history. Patient stated he was vaccinated for hepatitis B. 6. DVT prophylaxis: low risk, early ambulation encouraged. Code Visit Inpatient E&M: 49523 Init Hosp L3
[2018-10-15 01:39] LABS: AST(SGOT) 20 U/L (15-37); Alanine Aminotransfer ALT/SGPT 26 U/L (16-61); Albumin, Serum 3.1 g/dL (3.2-5.0); Alkaline Phosphatase 96 U/L (45-117); Bilirubin, Direct 0.07 mg/dL (0.00-0.30); Globulin 3.2 g/dL (2.2-4.2); Protein, Total 6.3 g/dL (6.4-8.2)
[2018-10-15] MEDS: chlordiazePOXIDE 25 MG Capsule PO ×6 (01:48→21:32)
[2018-10-15] MEDS: Buprenorphine HCl 2 MG TAB.SUBL SL ×3 (01:48→17:30)
[2018-10-15 07:18] LABS: International Normalized Ratio 0.9; Prothrombin Time (Protime)PT. 12.1 SECONDS (11.7-14.9)
[2018-10-15] MEDS: Multivitamins,Therapeutic Tablet 1 TABLET PO (07:49)
[2018-10-15] MEDS: Folic Acid 1 MG Tablet PO (07:49)
[2018-10-15] MEDS: Pramipexole Di-HCl 0.25 MG Tablet PO (21:31)
[2018-10-15] MEDS: cloNIDine HCl 0.1 MG Tablet PO (21:31)
[2018-10-15] MEDS: Methocarbamol 750 MG Tablet PO (21:32)
[2018-10-15] MEDS: traZODone 50 MG Tablet PO (21:32)
[2018-10-15] MEDS: Dicyclomine 10 MG Capsule 20 MG PO (21:32)
[2018-10-16 01:48] VITALS: BP 118/64; PULSE 73; RESP 14; TEMP 36.6
[2018-10-16] MEDS: Buprenorphine HCl 2 MG TAB.SUBL SL ×3 (01:50→17:24)
[2018-10-16] MEDS: Multivitamins,Therapeutic Tablet 1 TABLET PO (07:51)
[2018-10-16] MEDS: Folic Acid 1 MG Tablet PO (07:51)
--- NOTE | 2018-10-16 08:51 | PCM.PROGNOTE ---
Patient Problems: Active and Suspected Problems Opiate withdrawal (Acute) Subjective: Chief complaint: Follow-up after admission for acute opiate withdrawal. Patient seen and examined. No acute events overnight. He reported mild improvement of his symptoms. He still having mild abdominal cramps. Anxiety and restlessness improved. He was able to sleep last night. His vital signs are stable. - Physical Exam General: Alert, Oriented x3, Cooperative, No apparent distress HEENT: Atraumatic, PERRLA, EOMI, Normocephalic Oral: Moist Mucosa, No Gingival or Mucosal Lesions/ Ulcerations Neck: Supple, No JVD, Negative Carotid Bruits, Trachea Midline, Thyroid Normal Size and Texture Lungs: Clear to auscultation, Normal air movement, No rhonchi, No wheeze, No rales Cardiovascular: Regular rate, Regular Rhythm, Normal S1, Normal S2, No murmurs Abdomen: Bowel Sounds Present, Soft, Non Tender, Non-Distended, No Hepato-splenomegaly Extremities: No clubbing, No cyanosis, No edema Skin: No rashes, No breakdown Lymphatic: No Cervical, Supraclavicular, or Inguinal Adenopathy Neurological: Cranial nerves II-XII grossly intact, Neuro grossly intact Psych/Mental Status: Normal Affect, Appropriate, Alert and oriented to time, place, person, mood and affect Vital Signs Temp Pulse Resp BP Pulse Ox 98 F 73 14 118/64 98 10/16/18 01:48 10/16/18 01:48 10/16/18 01:48 10/16/18 01:48 10/15/18 01:01 Oxygen Delivery Method Room Air Weight: 143 lb 4.807 oz Body Mass Index (BMI) 21.1 Intake and Output for Last 24 Hours 10/14/18 10/15/18 10/16/18 23:59 23:59 23:59 Intake Total 1160 / 1160 872 / 872 Balance 1160 / 1160 872 / 872 Medical Necessity - Tobacco Use Smoking Status: Current every day smoker Tobacco Use: Cigarettes Assessment/Plan All Active Problems Opiate withdrawal (Acute) This is a 33 years old male patient presented to the emergency department requesting admission for acute opioid withdrawal for medical stabilization. #1 acute opiate withdrawal: Patient is on tapering course of Subutex, PRN Librium, Catapres, Bentyl, Vistaril, methocarbamol, Imodium, Zofran and Mirapex as well as trazodone. Routine blood work was unremarkable as well as LFT. Urine drug screen was positive for opioids and amphetamines. Patient reported mild improvement of his symptoms. His vital signs are stable. Plan to continue same treatment, consult [facility]. #2 polysubstance abuse: Patient has been using methamphetamines, cocaine and heroin. Plan as above. #3 chronic hepatitis C: Patient has never been treated for hepatitis C. Recommend follow-up with PCP as outpatient and referral to infectious disease. #4 tobacco abuse: Continue NicoDerm patch. #5 DVT prophylaxis: Low risk patient, no prophylaxis indicated. This note was generated with [employer] dictation software. It may contain incorrect words, spelling, and punctuation that were not noted in checking the note before signing. Code Visit Inpatient E&M: 26399 Subs Hosp L2
[2018-10-16 10:00] VITALS: BP 117/72; PULSE 79; RESP 16; TEMP 36.6
[2018-10-16 13:52] VITALS: BP 122/66; PULSE 86; RESP 14; TEMP 36.3
[2018-10-16 19:27] VITALS: BP 127/69; PULSE 84; RESP 16; TEMP 37.3; O2SAT 96
[2018-10-16] MEDS: cloNIDine HCl 0.1 MG Tablet PO (21:27)
[2018-10-16] MEDS: Ibuprofen 600 MG Tablet PO (21:27)
[2018-10-17] MEDS: Buprenorphine HCl 2 MG TAB.SUBL SL ×2 (04:39→17:04)
[2018-10-17 04:41] VITALS: BP 112/66; PULSE 65; RESP 14; TEMP 36.6; O2SAT 98
[2018-10-17 10:09] VITALS: BP 121/76; PULSE 86; RESP 16; TEMP 37.1; O2SAT 96
--- NOTE | 2018-10-17 10:10 | PCM.PN.HOSP ---
Patient Problems: Active and Suspected Problems Opiate withdrawal (Acute) Subjective: Feeling better overall. Decreased abdominal cramps and restless legs. No rhinitis. Vitals/I&O's: Vital Signs Temp Pulse Resp BP Pulse Ox 36.6 C 65 14 112/66 98 10/17/18 04:41 10/17/18 04:41 10/17/18 04:41 10/17/18 04:41 10/17/18 04:41 Oxygen Delivery Method Room Air Weight: 65 kg Body Mass Index (BMI) 21.1 Intake and Output for Last 24 Hours 10/15/18 10/16/18 10/17/18 23:59 23:59 23:59 Intake Total 1160 / 1160 1772 / 1772 750 / 750 Balance 1160 / 1160 1772 / 1772 750 / 750 General: Alert, No apparent distress HEENT: Atraumatic, Normocephalic Oral: Moist Mucosa, No Gingival or Mucosal Lesions/ Ulcerations Neck: No Nodes, Thyroid Normal Size and Texture Lungs: Clear to auscultation, Normal air movement, No rhonchi, No wheeze Cardiovascular: Regular rate, Regular Rhythm, Normal S1, Normal S2, No murmurs Abdomen: Bowel Sounds Present, Soft, Non Tender, Non-Distended, No Hepato-splenomegaly Extremities: No edema, No Calf Tenderness Skin: - - tattoos. Musculoskeletal: No Tenderness to Palpation of Joints or Extremities, No Muscle Wasting Psych/Mental Status: Normal Affect, Appropriate Current Medications Acetaminophen (Tylenol) 500 mg PO Q4H PRN PRN PRN Reason: Temp > 100.4 F Al Hydroxide/Mg Hydroxide (Mylanta Ii) 30 ml PO Q6H PRN PRN PRN Reason: dyspesia Bisacodyl (Dulcolax) 10 mg RECTAL DAILY PRN PRN Reason: Constipation Buprenorphine HCl (Buprenorphine Hcl) 2 mg SL Q12H ERASMO; Taper Stop: 10/18/18 05:14 Last Admin: 10/17/18 04:39 Dose: 2 mg Chlordiazepoxide (Librium) 25 mg PO Q6H PRN PRN PRN Reason: Moderate-Severe Anxiety Clonidine (Catapres) 0.1 mg PO Q2H PRN PRN PRN Reason: Hot/Cold Sweats or Anxiety Last Admin: 10/16/18 21:27 Dose: 0.1 mg Dicyclomine HCl (Bentyl) 20 mg PO Q6H PRN PRN PRN Reason: Abdomnial Discomfort Last Admin: 10/15/18 21:32 Dose: 20 mg Folic Acid (Folic Acid) 1 mg PO DAILY@0800 [facility] Last Admin: 10/16/18 07:51 Dose: 1 mg Hydroxyzine HCl (Vistaril Vial) 50 mg IM Q6H PRN PRN PRN Reason: Breakthrough Anxiety Hydroxyzine Pamoate (Vistaril Pamoate Capsule) 50 mg PO Q6H PRN PRN PRN Reason: Mild Anxiety Ibuprofen (Motrin) 600 mg PO Q8H PRN PRN PRN Reason: Mild-Moderate Pain (1-5/10) Last Admin: 10/16/18 21:27 Dose: 600 mg Loperamide HCl (Imodium) 2 - 4 mg PO UD PRN PRN Reason: LOOSE STOOLS Methocarbamol (Methocarbamol) 750 mg PO Q6H PRN PRN PRN Reason: Muscle Aches Last Admin: 10/15/18 21:32 Dose: 750 mg [facility] Last Admin: 10/16/18 07:51 Dose: 1 tablet Nicotine (Nicoderm Cq (Pbkc)) 21 mg TRANSDERM. DAILY [facility] Last Admin: 10/16/18 09:41 Dose: 21 mg Nutritional Formula (Lactose Free) (Ensure Enlive) 120 ml PO 4X/DAY [facility] Last Admin: 10/16/18 21:28 Dose: 120 ml Ondansetron HCl (Zofran Odt) 4 mg PO Q6H PRN PRN PRN Reason: NAUSEA Pramipexole Dihydrochloride (Mirapex) 0.25 mg PO Q12H PRN PRN PRN Reason: Restless Legs Last Admin: 10/15/18 21:31 Dose: 0.25 mg Senna (Senokot) 1 tablet PO QHS PRN PRN PRN Reason: Constipation Trazodone HCl (Desyrel) 50 mg PO QHS [facility] Last Admin: 10/16/18 21:09 Dose: Not Given Medical Necessity - Tobacco Use Smoking Status: Current every day smoker Tobacco Use: Cigarettes Assessment/Plan All Active Problems Opiate withdrawal (Acute) 1. Acute heroin withdrawal Clinically improving though still symptomatic at this time. Patient will continue with the buprenorphine taper through the . After which, patient will be discharged. Patient just discharged on August 23 from this facility to [facility]. Unclear if [facility] can be involved patient's care at this time given his recent hospitalization for the same diagnosis. Patient came in through the emergency room. 2. VTE prophylaxis: Not indicated as patient is low risk. Code Visit Inpatient E&M: 52903 Subs Hosp L2
--- NOTE | 2018-10-17 10:13 | PN_ITS ---
Patient Problems: Active and Suspected Problems Opiate withdrawal (Acute) Subjective: Feeling better overall. Decreased abdominal cramps and restless legs. No rhinitis. Vitals/I&O's: Vital Signs Temp Pulse Resp BP Pulse Ox 36.6 C 65 14 112/66 98 10/17/18 04:41 10/17/18 04:41 10/17/18 04:41 10/17/18 04:41 10/17/18 04:41 Oxygen Delivery Method Room Air Weight: 65 kg Body Mass Index (BMI) 21.1 Intake and Output for Last 24 Hours 10/15/18 10/16/18 10/17/18 23:59 23:59 23:59 Intake Total 1160 / 1160 1772 / 1772 750 / 750 Balance 1160 / 1160 1772 / 1772 750 / 750 General: Alert, No apparent distress HEENT: Atraumatic, Normocephalic Oral: Moist Mucosa, No Gingival or Mucosal Lesions/ Ulcerations Neck: No Nodes, Thyroid Normal Size and Texture Lungs: Clear to auscultation, Normal air movement, No rhonchi, No wheeze Cardiovascular: Regular rate, Regular Rhythm, Normal S1, Normal S2, No murmurs Abdomen: Bowel Sounds Present, Soft, Non Tender, Non-Distended, No Hepato- splenomegaly Extremities: No edema, No Calf Tenderness Skin: - - tattoos. Musculoskeletal: No Tenderness to Palpation of Joints or Extremities, No Muscle Wasting Psych/Mental Status: Normal Affect, Appropriate Current Medications Acetaminophen (Tylenol) 500 mg PO Q4H PRN PRN PRN Reason: Temp > 100.4 F Al Hydroxide/Mg Hydroxide (Mylanta Ii) 30 ml PO Q6H PRN PRN PRN Reason: dyspesia Bisacodyl (Dulcolax) 10 mg RECTAL DAILY PRN PRN Reason: Constipation Buprenorphine HCl (Buprenorphine Hcl) 2 mg SL Q12H ERASMO; Taper Stop: 10/18/18 05:14 Last Admin: 10/17/18 04:39 Dose: 2 mg Chlordiazepoxide (Librium) 25 mg PO Q6H PRN PRN PRN Reason: Moderate-Severe Anxiety Clonidine (Catapres) 0.1 mg PO Q2H PRN PRN PRN Reason: Hot/Cold Sweats or Anxiety Last Admin: 10/16/18 21:27 Dose: 0.1 mg Dicyclomine HCl (Bentyl) 20 mg PO Q6H PRN PRN PRN Reason: Abdomnial Discomfort Last Admin: 10/15/18 21:32 Dose: 20 mg Folic Acid (Folic Acid) 1 mg PO DAILY@0800 [facility] Last Admin: 10/16/18 07:51 Dose: 1 mg Hydroxyzine HCl (Vistaril Vial) 50 mg IM Q6H PRN PRN PRN Reason: Breakthrough Anxiety Hydroxyzine Pamoate (Vistaril Pamoate Capsule) 50 mg PO Q6H PRN PRN PRN Reason: Mild Anxiety Ibuprofen (Motrin) 600 mg PO Q8H PRN PRN PRN Reason: Mild-Moderate Pain (1-5/10) Last Admin: 10/16/18 21:27 Dose: 600 mg Loperamide HCl (Imodium) 2 - 4 mg PO UD PRN PRN Reason: LOOSE STOOLS Methocarbamol (Methocarbamol) 750 mg PO Q6H PRN PRN PRN Reason: Muscle Aches Last Admin: 10/15/18 21:32 Dose: 750 mg [facility]ivit[facility] ([facility]ivitamin) [facility] Last Admin: 10/16/18 07:51 Dose: 1 tablet Nicotine (Nicoderm Cq (Pbkc)) 21 mg TRANSDERM. DAILY [facility] Last Admin: 10/16/18 09:41 Dose: 21 mg Nutritional Formula (Lactose Free) (Ensure Enlive) 120 ml PO 4X/DAY [facility] Last Admin: 10/16/18 21:28 Dose: 120 ml Ondansetron HCl (Zofran Odt) 4 mg PO Q6H PRN PRN PRN Reason: NAUSEA Pramipexole Dihydrochloride (Mirapex) 0.25 mg PO Q12H PRN PRN PRN Reason: Restless Legs Last Admin: 10/15/18 21:31 Dose: 0.25 mg Senna (Senokot) 1 tablet PO QHS PRN PRN PRN Reason: Constipation Trazodone HCl (Desyrel) 50 mg PO QHS [facility] Last Admin: 10/16/18 21:09 Dose: Not Given Medical Necessity - Tobacco Use Smoking Status: Current every day smoker Tobacco Use: Cigarettes Assessment/Plan All Active Problems Opiate withdrawal (Acute) 1. Acute heroin withdrawal * Clinically improving though still symptomatic at this time. Patient will continue with the buprenorphine taper through the . After which, patient will be discharged. * Patient just discharged on August 23 from this facility to [facility]. Unclear if [facility] can be involved patient's care at this time given his recent hospitalization for the same diagnosis. Patient came in through the emergency room. 2. VTE prophylaxis: Not indicated as patient is low risk. Code Visit Inpatient E&M: 53643 Subs Hosp L2
[2018-10-17] MEDS: cloNIDine HCl 0.1 MG Tablet PO ×2 (10:15→20:06)
[2018-10-17] MEDS: Ibuprofen 600 MG Tablet PO ×2 (10:15→20:06)
[2018-10-17] MEDS: Folic Acid 1 MG Tablet PO (10:15)
[2018-10-17] MEDS: Multivitamins,Therapeutic Tablet 1 TABLET PO (10:15)
[2018-10-17 17:05] VITALS: BP 112/76; PULSE 77; RESP 16; TEMP 36.9
[2018-10-17 19:51] VITALS: BP 137/72; PULSE 73; RESP 18; TEMP 36.9
[2018-10-17] MEDS: Methocarbamol 750 MG Tablet PO (20:06)
[2018-10-18 01:44] VITALS: BP 113/61; PULSE 74; RESP 18; TEMP 36.6
[2018-10-18] MEDS: cloNIDine HCl 0.1 MG Tablet PO (01:56)
--- NOTE | 2018-10-18 09:17 | DCINST_ITS ---
- Discharge Diagnoses Current Active Problems: Current Active and Chronic Problems Opiate dependence (Chronic) Drug abuse, cocaine type (Chronic) Methamphetamine abuse, episodic (Chronic) Chronic hepatitis C (Chronic) Nicotine dependence (Chronic) Opiate withdrawal (Acute) You will use the following diet at home:: No restrictions Your food should be the consistency of: Regular Your liquids should be the consistency of: Regular/Thin Discharge Activity: Return to Normal Activity Allergies/Adverse Reactions: Allergies No Known Allergies Allergy (Verified 10/14/18 22:08) Medications to take at Discharge Acetaminophen [Tylenol] 500 mg PO Q4H PRN PRN tablet 10/18/18 Ibuprofen [Motrin] 600 mg PO Q8H PRN PRN tablet 10/18/18 Primary Care Physician: Care Physician,No Primary [Primary Care Provider] - Test Results: Test results from this visit will be discussed in further detail at your follow- up appointment, if applicable. Proposed Discharge Date: 10/18/18
--- NOTE | 2018-10-18 09:17 | PCM.DC.SUM ---
Discharge Date and Diagnosis - Problem List Patient Problems: Active and Suspected Problems Opiate withdrawal (Acute) Date of Admission: 10/15/18 Date of Discharge: 10/18/18 - Primary Discharge Diagnosis Active and Suspected Problems Opiate withdrawal (Acute) - Secondary Discharge Diagnosis Chronic Problems Opiate dependence (Chronic) Drug abuse, cocaine type (Chronic) Methamphetamine abuse, episodic (Chronic) Chronic hepatitis C (Chronic) Nicotine dependence (Chronic) Heroin abuse (Chronic) Hospital Course and Treatment Operations: None Procedures: None Summary of Care Provided: The patient is a 33 year old M presents at the behest of his mother for heroin withdrawal. Patient was a started on chlordiazepoxide as well as other medications to help with somatic complaints. Patient completed his treatment today. Patient was evaluated by [facility] and despite having just been discharged to the [facility] program last month. He had made mention to Marlyn, from [facility] [employer], that he could just in the streets but came in at the insistence by his mother. He stated that he wants program where he can be initiated on Vivitrol and not Subutex. Currently looking for program that would be able to meet such needs. He also stated that he did not want to decide and would defer to his mother in regards to the appropriateness of a program. Patient will be discharged to facility for further rehab but the concern from my standpoint is that this may not work out as patient appears not to be brought in to receiving treatment. Reassurance was provided to the patient in regards to the long-term goal and outlook and but he seems indifferent to going to program and has removed himself from other programs in the past. [] Patient Problems: Active and Suspected Problems Opiate withdrawal (Acute) - Physical Exam General: Alert, No apparent distress HEENT: Atraumatic, Normocephalic Skin: - - Numerous tattoos Vital Signs Temp Pulse Resp BP Pulse Ox 36.6 C 74 18 113/61 96 10/18/18 01:44 10/18/18 01:44 10/18/18 01:44 10/18/18 01:44 10/17/18 10:09 Oxygen Delivery Method Room Air Weight: 65 kg Body Mass Index (BMI) 21.1 Intake and Output for Last 24 Hours 10/16/18 10/17/18 10/18/18 23:59 23:59 23:59 Intake Total 1772 / 1772 750 / 750 500 / 500 Balance 1771 750 / 750 500 / 500 Discharge Diet: No Restrictions Discharge Activity: Return to Normal Activity Home Medications: Medications to take at Discharge Acetaminophen [Tylenol] 500 mg PO Q4H PRN PRN tablet 10/18/18 Ibuprofen [Motrin] 600 mg PO Q8H PRN PRN tablet 10/18/18 Primary Care Physician: Care Physician,No Primary [Primary Care Provider] - Disposition: Home Minutes spent on discharge:: 26 Patient Condition:: Fair Medical Necessity - Tobacco Use Smoking Status: Current every day smoker Tobacco Use: Cigarettes Meaningful Use Info Meaningful Use Diagnoses (Choose all that apply): None applicable Code Visit Inpatient E&M: 69992 Disch Hosp
--- NOTE | 2018-10-18 09:21 | DS.PCM_ITS ---
Discharge Date and Diagnosis - Problem List Patient Problems: Active and Suspected Problems Opiate withdrawal (Acute) Date of Admission: 10/15/18 Date of Discharge: 10/18/18 - Primary Discharge Diagnosis Active and Suspected Problems Opiate withdrawal (Acute) - Secondary Discharge Diagnosis Chronic Problems Opiate dependence (Chronic) Drug abuse, cocaine type (Chronic) Methamphetamine abuse, episodic (Chronic) Chronic hepatitis C (Chronic) Nicotine dependence (Chronic) Heroin abuse (Chronic) Hospital Course and Treatment Operations: None Procedures: None Summary of Care Provided: The patient is a 33 year old M presents at the behest of his mother for heroin withdrawal. Patient was a started on chlordiazepoxide as well as other medications to help with somatic complaints. Patient completed his treatment today. Patient was evaluated by [facility] and despite having just been discharged to the [facility] program last month. He had made mention to Marlyn, from [facility] [employer], that he could just in the streets but came in at the insistence by his mother. He stated that he wants program where he can be initiated on Vivitrol and not Subutex. Currently looking for program that would be able to meet such needs. He also stated that he did not want to decide and would defer to his mother in regards to the appropriateness of a program. Patient will be discharged to facility for further rehab but the concern from my standpoint is that this may not work out as patient appears not to be brought in to receiving treatment. Reassurance was provided to the patient in regards to the long-term goal and outlook and but he seems indifferent to going to program and has removed himself from other programs in the past. [] Patient Problems: Active and Suspected Problems Opiate withdrawal (Acute) - Physical Exam General: Alert, No apparent distress HEENT: Atraumatic, Normocephalic Skin: - - Numerous tattoos Vital Signs Temp Pulse Resp BP Pulse Ox 36.6 C 74 18 113/61 96 10/18/18 01:44 10/18/18 01:44 10/18/18 01:44 10/18/18 01:44 10/17/18 10:09 Oxygen Delivery Method Room Air Weight: 65 kg Body Mass Index (BMI) 21.1 Intake and Output for Last 24 Hours 10/16/18 10/17/18 10/18/18 23:59 23:59 23:59 Intake Total 1772 / 1772 750 / 750 500 / 500 Balance 1771 750 / 750 500 / 500 Discharge Diet: No Restrictions Discharge Activity: Return to Normal Activity Home Medications: Medications to take at Discharge Acetaminophen [Tylenol] 500 mg PO Q4H PRN PRN tablet 10/18/18 Ibuprofen [Motrin] 600 mg PO Q8H PRN PRN tablet 10/18/18 Primary Care Physician: Care Physician,No Primary [Primary Care Provider] - Disposition: Home Minutes spent on discharge:: 26 Patient Condition:: Fair Medical Necessity - Tobacco Use Smoking Status: Current every day smoker Tobacco Use: Cigarettes Meaningful Use Info Meaningful Use Diagnoses (Choose all that apply): None applicable Code Visit Inpatient E&M: 45210 Disch Hosp
[2018-10-18 10:34] VITALS: BP 111/68; PULSE 78; RESP 16; TEMP 36.8
--- NOTE | 2018-10-18 12:51 | CHAPLAIN ---
Type of Pastoral Visit _x__ Initial Visit ___ Follow-up Visit ___ On-call Visit ___ General Patient Visit ___ Spiritual Assessment ___ Family Conference ___ Bereavement ___ Rapid Response ___ Code Blue ___ Other (describe below) Pastoral Care Referral From _x__ Patient ___ Family ___ Nurse ___ Physician ___ Performance Analyst ___ Senior Software Architect ___ Other (describe below) Sacrament/Intervention _x__ Active listening ___ Anointing ___ Confucianism ___ Bereavement ___ Communion _x__ Concha exploration ___ _x__ Life review _x__ Prayer ___ Reconciliation ___ Sacrament of Sick _x__ Supportive presence ___ Wedding ___ Other (describe below) Pastoral Comments this patient was seen by this campaign consultant in a previous admission; pt is about to be discharged and waiting for paperwork and transportation; pt willing to talk for a few minutes and review past 18 months, affirm desire for another attempt at recovery, and affirm his concha (pt has a Bible with him); pt welcomes prayer support;
--- NOTE | 2018-10-18 13:42 | NEWVISION ---
Patient referred to [facility] for continued detox / inpatient and 21 day rehabilitation. [facility] provided transportation.
== END 2018-10-18 12:09 | disposition home or self-care (01) | DRG 773 ==
LOC: ED 10-15 00:27 → MS3 10-15 01:01
PROVIDERS: Admitting Provider Internal Medicine; Emergency Provider Emergency Medicine
DX: F11.23 Opioid dependence with withdrawal (principal); F14.10 Cocaine abuse, uncomplicated; F15.10 Other stimulant abuse, uncomplicated; B18.2 Chronic viral hepatitis C; F17.210 Nicotine dependence, cigarettes, uncomplicated
CPT/HCPCS: 80048; 80076; 80307; 80320; 85025; 85610; 97802; 99218; 99283; 99406; G0378; G0480